=== PATIENT | female | born 1935 | race Caucasian/White ===

== ENCOUNTER 2017-10-09 12:51 | Outpatient (RCR) | payer MEDICARE, OTHER ==
[2017-10-02 08:39] VITALS: BP 137/63
[2017-10-02 08:48] LABS: PLATELET COUNT, AUTOMATED 273 K/uL (150-450)
--- NOTE | 2017-10-02 09:54 | RADIOLOGY IMAGING REPORT ---
FACILITY: [facility] PATIENT NAME: Silva Brown : 1935 MR: [id number] V: [id number] EXAM DATE: ORDERING PHYSICIAN: SANDRINE ZHAO TECHNOLOGIST: Location: [facility] [place] Patient: Silva Brown : 1935 Visit/Account:[id number] Date of Sevice: 10/02/2017 CHEST W CONTRAST Provided history: Lung cancer Additional pertinent history: none TECHNIQUE: Spiral scan was obtained from the lower neck through the lung bases with intravenous cont rast Contrast dose: 75 mL Isovue 370 intravenously. Source images were reformatted in the coronal and sagittal planes. Additional series performed today: none One of the following dose optimization techniques was utilized in the performance of this exam: Autom ated exposure control; adjustment of the mA and/or kV according to the patient's size; or use of an i terative reconstruction technique. Specific details can be referenced in the facility's radiology CT exam operational policy. COMPARISON STUDIES: CT chest 05/18/17 FINDINGS: Lungs / pleura / maximino: Wedge-shaped soft tissue attenuation peripherally left mid lung touching the lateral pleural margin is slightly less dense compared to prior with no progressive component. Additional confluent density in the posterior left lower lung and small associated effusion is very s imilar to the prior exam. There is no centrally obstructing mass. Airways are widely patent. Subpleur al nodularity image 76 is stable. Right lung reveals no acute changes. A dense subpleural nodule right lower lobe image 74 is unchanged . Lower neck: Multiple hypoenhancing masses of the thyroid with left lower pole extension to the medi astinum is unchanged from prior. No lower neck adenopathy. Mediastinum: Stable small left para-aortic lymph node. Scattered small mediastinal lymph nodes else where are also stable. No worsening adenopathy. Heart / pericardium: negative Vessels: Moderately advanced three-vessel coronary artery calcification. Extensive low-attenuation pl aque of the descending thoracic aorta with ulceration. No new mural clot. Lymph nodes: negative Body wall: negative Upper abdomen: Circumscribed mass left adrenal measures 16 x 27 mm, unchanged from prior and older e xaminations. Right adrenal negative. No upper hepatic lesion. Bones: negative IMPRESSION: 1. Airspace disease posterior left lower lobe and small effusion is very similar to prior examination . I would favor posttreatment change or recurring inflammatory/infectious process over neoplastic. 2. Peripheral airspace disease left midlung shows decreasing density from the last exam and likely re lates to prior treatment or a sequela of old embolism. 3. No new or enlarging pulmonary nodules in either lung. 4. Stable left adrenal mass, likely benign. 5. Multinodular goiter with left lobe mediastinal descent. Report Dictated By: Roger Dietz MD at 10/02/2017 9:38 AM Report E-Signed By: Roger Dietz MD at 10/02/2017 9:50 AM WSN:[id number]
[~2017-10-09 12:51] MED LIST: ALPR-429 PO; ALPR-460 PO; AMOX-559 PO; AMOX1TAB9 PO; ASCO-182 PO; ASPI-870 PO; ATE50 PO; ATEN-1 PO; ATOR40TA24 PO; AZIT-18 PO; CALC-515 PO; CARV12.577 PO; CEFU250T11 PO; CHOL200025 PO; CHOL400C10 PO; CLOP75TA43 PO; CYAN500L6 PO; CYCL1DRO6 OP; DEX4 PO; DEXTROSE 5%(*) 100 ML BAG 100 ML IVPB PRN; EST625 PO; EZET1TAB55 PO; FERR-53 PO; FERR325T24 PO; FLUC200T56 PO; FOLI-68 PO; HCTZ25 PO; HYDROCHLOROTHYAZIDE; IBUP-1618 PO; IOPAMIDOL 76% 75 ML INFUS BTL 75 ML ONE; LACT1CAP6 PO; LIDOCAINE/SOD BICARB 8.4% SYR ID PRN; LISI-362 PO; LISI5TAB25 PO; LOR5 PO; METF-410 PO; METF-420 PO; METF750T25 PO; METH5TAB87 PO; METO25TA23 PO; METO50TA19 PO; MULT1TAB64 PO; NIT4 SL; NS(*) 0.9% 100 ML BAG 100 ML IVPB PRN; OMEG300C PO; ONDA4TAB97 PO; ONDA8TAB94 PO; PANT40TA65 PO; RANI-366 PO; ROBC PO; SIMV-49 PO; TRAM-420 PO; TRAM-627 PO; [UNRECOGNIZED DRUG - CODE] PO
[2017-10-09] MEDS ORDERED: UBID50TA3 PO (14:38)
[2017-10-09] MEDS ORDERED: TRAZ-156 PO (14:38)
[2017-10-09] MEDS ORDERED: CHOL200074 PO (14:38)
[2017-10-09] MEDS ORDERED: ALPH50CA4 PO (14:38)
[2017-10-09] MEDS ORDERED: CYAN100T25 PO (14:38)
== END 2017-10-10 14:36 | disposition home or self-care (01) ==
LOC: RAON 12:51
PROVIDERS: ATTEND Radiology Radiation Oncology
DX: C34.90 Malignant neoplasm of unspecified part of unspecified bronchus or lung (principal); J90 Pleural effusion, not elsewhere classified; E27.8 Other specified disorders of adrenal gland; E04.2 Nontoxic multinodular goiter
CPT/HCPCS: 36415; 71260; 85025; G0463; Q9967; 82040; 82247; 82310; 82374; 82435; 82565; 82947; 84075; 84132; 84155; 84295; 84450; 84460; 84520; 99212

== ENCOUNTER 2017-12-25 21:14 | Inpatient (IN) | payer MEDICARE, OTHER ==
[~2017-12-25] VITALS: Ht 167.6 cm; Wt 61.8 kg
[~2017-12-25 21:14] MED LIST changes: +ALPH50CA4 PO; +CHOL200074 PO; +CYAN100T25 PO; -DEXTROSE 5%(*) 100 ML BAG 100 ML IVPB PRN; -IOPAMIDOL 76% 75 ML INFUS BTL 75 ML ONE; -LIDOCAINE/SOD BICARB 8.4% SYR ID PRN; -METF-410 PO; +METF-411 PO; -METF-420 PO; +METF-421 PO; -NS(*) 0.9% 100 ML BAG 100 ML IVPB PRN; +TRAZ50TA34 PO; +UBID50TA3 PO
[2017-12-25] MEDS ORDERED: NIT4 SL (21:31)
[2017-12-25] MEDS ORDERED: NS(*) 0.9% 1000 ML BAG 1,000 ML IV ONE (21:33)
--- NOTE | 2017-12-25 21:33 | ER Report ---
History and Physical Time Seen By MD: 21:28 Hx. of Stated Complaint: PT REPORTS HIGH BP READING AT HOME, FEELING NAUSEOUS HPI/ROS CHIEF COMPLAINT: Dizziness, nausea HISTORY OF PRESENT ILLNESS: 82-year-old female with a history of lung cancer, COPD, she wears 2 L of O2 at night.. Tonight she presents to the ER with dizziness and nausea and shortness of breath. She said symptoms for several days. Tonight she noted her blood pressure was elevated and she came to the ER. Patient notes no leg swelling or calf pain. REVIEW OF SYSTEMS: Respiratory: As above Cardiovascular: No chest pain, no palpitations. Gastrointestinal: No vomiting, no abdominal pain. Musculoskeletal: No back pain. Allergies: Coded Allergies: No Known Allergies (Verified Allergy, Mild, 07/17/16) Home Meds Active Scripts Ferrous Sulfate (FERROUS SULFATE) 325 Mg Tablet, 325 MG PO DAILY for 30 Days, # 30 MG 6 Refills Prov:SRIDEVI WYLIE GREEN HIDE INSPECTOR-BC, ONC 12/27/16 Folic Acid (FOLIC ACID) 1 Mg Tablet, 1 MG PO QDAY, #30 TAB 5 Refills Prov:SRIDEVI WYLIE GREEN HIDE INSPECTOR-BC, ONC 08/07/16 Aspirin (Children's Aspirin) 81 Mg Chew, 81 MG PO QDAY, #30 TAB.CHEW Prov:REILLY WEAVER DO 09/11/14 Reported Medications Nitroglycerin (NITROSTAT) 0.4 Mg Subl, 0.4 MG SL Q5MIN 12/25/17 Cholecalciferol (Vitamin D3) (VITAMIN D-3) 2,000 Unit Capsule, 2000 UNIT PO DAILY, CAPSULE 10/09/17 Ubidecarenone (COQ10) 50 Mg Tab.chew, 120 MG PO DAILY, TAB.CHEW 10/09/17 Cyanocobalamin (Vitamin B-12) (VITAMIN B-12) 100 Mcg Tablet, 200 MCG PO DAILY 10/09/17 Alpha Lipoic Acid (ALPHA LIPOIC ACID) 50 Mg Capsule, 50 MG PO DAILY, CAPSULE 10/09/17 Trazodone Hcl (TRAZODONE HCL) 50 Mg Tablet, 25 MG PO QHS 10/09/17 Metformin Hcl (METFORMIN HCL) 1,000 Mg Tablet, 1 TAB PO BID, TAB 05/23/17 Multivitamin (MULTI VITAMIN DAILY) 1 Each Tablet, 1 EACH PO DAILY 11/16/16 Ascorbic Acid (VITAMIN C) 500 Mg Tablet, 500 MG PO DAILY, TAB 11/16/16 Methimazole (METHIMAZOLE) 5 Mg Tablet, 5 MG PO DAILY 09/04/16 Metoprolol Succinate (METOPROLOL SUCCINATE) 50 Mg Tab.er.24h, 100 MEQ PO QDAY, TAB 08/17/16 Lisinopril (LISINOPRIL) 5 Mg Tablet, 10 MG PO QDAY, TAB 08/17/16 Atorvastatin Calcium (LIPITOR) 40 Mg Tablet, 1 TAB PO HS, TAB 02/12/15 Discontinued Scripts Ranitidine Hcl (ZANTAC) 150 Mg Tablet, 150 MG PO DAILY, #90 TAB 4 Refills Prov:SRIDEVI WYLIE Ambrosio GREEN HIDE INSPECTOR-BC, ONC 06/14/17 Past Medical/Surgical History PAST MEDICAL HISTORY 1. Anemia. 2. Type 2 diabetes mellitus. 3. Coronary artery disease. 4. History of pneumonia. 5. Hypercholesterolemia. 6. Adenocarcinoma left lung PAST SURGICAL HISTORY Hysterectomy in 1990. SOCIAL HISTORY The patient is . She has two daughters and one son. She is retired from office work. Denies any abuse of alcohol or illicit drugs. She quit smoking September 2014 when she was diagnosed with heart attack. Prior to that she smoked one pack a day for sixty years. FAMILY HISTORY Noncontributory. CURRENT MEDICATIONS 1. Methimazole 5 mg daily. 2. Metoprolol 25 mg daily. 3. Vitamin D3, 2000 units daily. 4. Probiotic one capsule daily. 5. Vitamin B12, 500 mcg daily. 6. Metformin 250 mg twice daily. 7. Fish oil 300 mg daily. 8. Multivitamin half tablet daily. 9. Alprazolam 0.5 mg as needed. 10. Lipitor 40 mg daily. 11. Lisinopril 10 mg daily. 12. Plavix 75 mg daily. 13. Aspirin 81 mg daily. ALLERGIES No known drug allergies. Reviewed Nurses Notes: Yes Old Medical Records Reviewed: Yes Hx Smoking: Yes Smoking Status: Former Smoker Exposure to Second Hand Smoke?: No Hx Substance Use Disorder: No Hx Alcohol Use: No Constitutional Vital Sign - Last 24 Hours 12/25/17 12/25/17 12/25/17 12/25/17 21:14 21:18 21:19 21:29 Temp 97.9 Pulse ??? 90 84 Resp 16 26 B/P (MAP) 182/118 182/118 (139) Pulse Ox 91 91 O2 Delivery Room Air 12/25/17 12/25/17 12/25/17 12/25/17 21:30 21:44 21:59 22:00 Pulse 73 74 Resp 29 10 B/P (MAP) 170/96 (120) 120/77 (91) Pulse Ox 91 93 12/25/17 12/25/17 12/25/17 12/25/17 22:14 22:15 22:20 22:30 Pulse 79 79 Resp 13 10 B/P (MAP) 117/86 (96) 152/83 (106) 144/71 (95) Pulse Ox 93 93 12/25/17 12/25/17 12/25/17 12/25/17 22:35 22:45 22:50 23:00 Pulse ? B/P (MAP) ???/??? (3505) ???/??? (1665) 12/25/17 12/25/17 12/25/17 12/25/17 23:05 23:20 23:22 23:30 Pulse ? B/P (MAP) 127/88 (101) ???/??? (1665) 12/25/17 12/25/17 12/25/17 12/25/17 23:35 23:45 23:50 23:55 Pulse 73 71 70 B/P (MAP) ???/??? (9155) Pulse Ox 90 89 89 12/26/17 12/26/17 12/26/17 12/26/17 00:00 00:10 00:19 00:25 Pulse 73 82 B/P (MAP) ???/??? (1665) 138/87 (104) Pulse Ox 91 91 12/26/17 12/26/17 12/26/17 12/26/17 00:30 00:40 00:55 01:00 Pulse 75 ??? B/P (MAP) 150/89 (109) ???/??? (1665) Pulse Ox 91 1818 12/26/17 12/26/17 01:10 01:25 01:30 Pulse 74 72 B/P (MAP) ???/??? (1665) Pulse Ox 94 95 Physical Exam Vital signs stable, afebrile, pulse ox normal on room air, patient's blood pressures mildly elevated General Appearance: The patient is alert, has no immediate need for airway protection and no current signs of toxicity. Skin warm, dry, pink, HEENT: Pupils equal and round no injection. Oropharynx without redness or exudate, mucous. Membranes are moist Respiratory: Chest is non tender, lungs are clear to auscultation. No wheezing or rails Cardiac: regular rate and rhythm Gastrointestinal: Abdomen is soft and non tender, no masses, bowel sounds normal. Musculoskeletal: Neck: Neck is supple and non tender. No lymphadenopathy, no JVD Extremities have full range of motion and are non tender. No edema, no calf tenderness Skin: No rashes or lesions. DIFFERENTIAL DIAGNOSIS: After history and physical exam differential diagnosis was considered for shortness of breath including but not limited to pulmonary infectious process, COPD, asthma, pulmonary embolus and congestive heart failure. Additionally,dizziness including but not limited to peripheral and central causes of vertigo, orthostatic causes including dehydration, and blood loss. Medical Decision Making Data Points Result Diagram: 12/25/17212912/25/172129 Laboratory Hematology Test 12/25/17 21:30 12/25/17 21:50 Red Blood Count 4.93 M/uL (4.17-5.56) Mean Corpuscular Volume 91.0 fL (80.0-96.0) Mean Corpuscular Hemoglobin 31.4 pg (26.0-33.0) Mean Corpuscular Hemoglobin Concent 34.5 g/dL (32.0-36.0) Red Cell Distribution Width 13.2 % (11.5-14.5) Mean Platelet Volume 7.4 fL (7.2-11.1) Neutrophils (%) (Auto) 66.4 % (39.4-72.5) Lymphocytes (%) (Auto) 16.5 % (17.6-49.6) Monocytes (%) (Auto) 14.1 % (4.1-12.4) Eosinophils (%) (Auto) 2.3 % (0.4-6.7) Basophils (%) (Auto) 0.7 % (0.3-1.4) Nucleated RBC Relative Count (auto) 0.1 /100WBC Neutrophils # (Auto) 4.7 K/uL (2.0-7.4) Lymphocytes # (Auto) 1.2 K/uL (1.3-3.6) Monocytes # (Auto) 1.0 K/uL (0.3-1.0) Eosinophils # (Auto) 0.2 K/uL (0.0-0.5) Basophils # (Auto) 0.1 K/uL (0.0-0.1) Nucleated RBC Absolute Count (auto) 0.01 K/uL D-Dimer Quantitative (PE/DVT) 1.31 ug/ml (0-0.50) Sodium Level 138 mmol/L (137-145) Potassium Level 3.9 mmol/L (3.5-5.0) Chloride Level 100 mmol/L (98-107) Carbon Dioxide Level 25 mmol/L (22-31) Blood Urea Nitrogen 11 mg/dl (7-18) Creatinine 0.70 mg/dl (0.52-1.04) Glomerular Filtration Rate Calc > 60.0 Random Glucose 157 mg/dl (75-110) Calcium Level 9.4 mg/dl (8.4-10.2) Total Bilirubin 0.4 mg/dl (0.2-1.3) Aspartate Amino Transf (AST/SGOT) 26 U/L (0-35) Alanine Aminotransferase (ALT/SGPT) 27 U/L (0-56) Alkaline Phosphatase 104 U/L (0-126) Troponin I < 0.012 ng/ml B-Type Natriuretic Peptide 194 pg/ml (0-100) Total Protein 7.5 g/dl (6.3-8.2) Albumin 4.5 g/dl (3.5-5.0) Urine Color Colorless Urine Clarity Clear Urine pH 7.0 pH (4.8-9.5) Urine Specific [place] 1.005 Urine Protein Negative mg/dL (NEGATIVE) Urine Glucose (UA) 50 mg/dL (NEGATIVE) Urine Ketones Negative mg/dL (NEGATIVE) Urine Blood Negative (NEGATIVE) Urine Nitrite Negative (NEGATIVE) Urine Bilirubin Negative (NEGATIVE) Urine Urobilinogen Negative mg/dL (0.2-1.9) Urine Leukocyte Esterase Negative (NEGATIVE) Urine RBC <1 /HPF (0-2/HPF) Urine WBC 1 /HPF (0-5/HPF) Urine Squamous Epithelial Cells None /LPF (NONE-FEW) Urine Bacteria Negative /HPF (NONE-FEW) Urine Mucus None /HPF (NONE-FEW) Chemistry Test 12/25/17 21:30 12/25/17 21:50 White Blood Count 7.1 k/uL (4.5-11.0) Red Blood Count 4.93 M/uL (4.17-5.56) Hemoglobin 15.5 g/dL (12.0-16.0) Hematocrit 44.8 % (34.0-47.0) Mean Corpuscular Volume 91.0 fL (80.0-96.0) Mean Corpuscular Hemoglobin 31.4 pg (26.0-33.0) Mean Corpuscular Hemoglobin Concent 34.5 g/dL (32.0-36.0) Red Cell Distribution Width 13.2 % (11.5-14.5) Platelet Count 284 K/uL (150-450) Mean Platelet Volume 7.4 fL (7.2-11.1) Neutrophils (%) (Auto) 66.4 % (39.4-72.5) Lymphocytes (%) (Auto) 16.5 % (17.6-49.6) Monocytes (%) (Auto) 14.1 % (4.1-12.4) Eosinophils (%) (Auto) 2.3 % (0.4-6.7) Basophils (%) (Auto) 0.7 % (0.3-1.4) Nucleated RBC Relative Count (auto) 0.1 /100WBC Neutrophils # (Auto) 4.7 K/uL (2.0-7.4) Lymphocytes # (Auto) 1.2 K/uL (1.3-3.6) Monocytes # (Auto) 1.0 K/uL (0.3-1.0) Eosinophils # (Auto) 0.2 K/uL (0.0-0.5) Basophils # (Auto) 0.1 K/uL (0.0-0.1) Nucleated RBC Absolute Count (auto) 0.01 K/uL D-Dimer Quantitative (PE/DVT) 1.31 ug/ml (0-0.50) Glomerular Filtration Rate Calc > 60.0 Calcium Level 9.4 mg/dl (8.4-10.2) Total Bilirubin 0.4 mg/dl (0.2-1.3) Aspartate Amino Transf (AST/SGOT) 26 U/L (0-35) Alanine Aminotransferase (ALT/SGPT) 27 U/L (0-56) Alkaline Phosphatase 104 U/L (0-126) Troponin I < 0.012 ng/ml B-Type Natriuretic Peptide 194 pg/ml (0-100) Total Protein 7.5 g/dl (6.3-8.2) Albumin 4.5 g/dl (3.5-5.0) Urine Color Colorless Urine Clarity Clear Urine pH 7.0 pH (4.8-9.5) Urine Specific [place] 1.005 Urine Protein Negative mg/dL (NEGATIVE) Urine Glucose (UA) 50 mg/dL (NEGATIVE) Urine Ketones Negative mg/dL (NEGATIVE) Urine Blood Negative (NEGATIVE) Urine Nitrite Negative (NEGATIVE) Urine Bilirubin Negative (NEGATIVE) Urine Urobilinogen Negative mg/dL (0.2-1.9) Urine Leukocyte Esterase Negative (NEGATIVE) Urine RBC <1 /HPF (0-2/HPF) Urine WBC 1 /HPF (0-5/HPF) Urine Squamous Epithelial Cells None /LPF (NONE-FEW) Urine Bacteria Negative /HPF (NONE-FEW) Urine Mucus None /HPF (NONE-FEW) Coagulation Test 12/25/17 21:30 D-Dimer Quantitative (PE/DVT) 1.31 ug/ml Urinalysis Test 12/25/17 21:50 Urine Color Colorless Urine Clarity Clear Urine pH 7.0 pH (4.8-9.5) Urine Specific [place] 1.005 Urine Protein Negative mg/dL (NEGATIVE) Urine Glucose (UA) 50 mg/dL (NEGATIVE) Urine Ketones Negative mg/dL (NEGATIVE) Urine Blood Negative (NEGATIVE) Urine Nitrite Negative (NEGATIVE) Urine Bilirubin Negative (NEGATIVE) Urine Urobilinogen Negative mg/dL (0.2-1.9) Urine Leukocyte Esterase Negative (NEGATIVE) Urine RBC <1 /HPF (0-2/HPF) Urine WBC 1 /HPF (0-5/HPF) Urine Squamous Epithelial Cells None /LPF (NONE-FEW) Urine Bacteria Negative /HPF (NONE-FEW) Urine Mucus None /HPF (NONE-FEW) EKG/Imaging EKG Interpretation 12 lead EK Rhythm: normal sinus rhythm with first-degree AV block [place]: normal QRS: normal ST segments: normal, no evidence of ischemia or dysrhythmia Imaging Results: CT scan of the head was obtained. The results of the study are no acute findings. The study was read by the radiologist. I viewed the images myself on the PACS system. Results: CT scan of the CTA upon her angiogram was obtained. The results of the study are Preliminary report per radiology shows multiple pulmonary embolisms The study was read by the radiologist. I viewed the images myself on the PACS system. ED Course/Re-evaluation Clinical Indication for ER IV: IV Access ED Course Patient was admitted to an examination room. H&P was done. The differential diagnoses was considered. On clinical examination. Patient complaining of dizziness and shortness of breath for several days. She noted her blood pressure was elevated tonight. Presents to the emergency department. She has a known history of lung cancer, status post chemotherapy and radiation. She denies any fever, URI cough or sore throat. Diagnostic evaluation shows an elevated d-dimer. Her troponin and EKG are unremarkable. Patient had a head CT performed to rule out acute ischemic stroke as etiology of her dizziness. Her d-dimer was elevated and she was sent for CTA pulmonary angiogram which returned positive for multiple subsegmental pulmonary embolism. 12/26/2017 12:19:54 am case discussed with Dr. Andrea Gipson hospitalist on- call. Decision to Disposition Date: Dec 25, 2017 Decision to Disposition Time: 23:12 Depart Departure Latest Vital Signs Vital Signs Date Time Temp Pulse Resp B/P (MAP) Pulse Ox O2 Delivery O2 Flow Rate FiO2 12/26/17 01:30 ???/??? (1665) 12/26/17 01:25 72 95 12/25/17 22:20 10 12/25/17 21:18 97.9 Room Air Impression: Primary Impression: Pulmonary embolism Additional Impressions: Dizzinesses Dyspnea Hypertension Adenocarcinoma of lung Condition: Improved Disposition: Admitted from ER Referrals: REILLY REVELES MD (PCP) Additional Instructions: Follow-up with primary care if unimproved in 3-5 days Problem Qualifiers Primary Impression: Pulmonary embolism Pulmonary embolism type: other Chronicity: acute Acute cor pulmonale presence: without acute cor pulmonale Qualified Codes: I26.99 - Other pulmonary embolism without acute cor pulmonale Additional Impressions: Dyspnea Dyspnea type: unspecified Qualified Codes: R06.00 - Dyspnea, unspecified Hypertension Hypertension type: essential hypertension Qualified Codes: I10 - Essential ( primary) hypertension Adenocarcinoma of lung Laterality: left Qualified Codes: C34.92 - Malignant neoplasm of unspecified part of left bronchus or lung BYRON MCCARTY DO Dec 25, 2017 21:33
[2017-12-25] MEDS ORDERED: ONDANSETRON 4 MG/2 ML VIAL IVP ONE (21:35)
[2017-12-25 21:44] LABS: PLATELET COUNT, AUTOMATED 284 K/uL (150-450)
--- NOTE | 2017-12-25 21:52 | EKG ---
FACILITY: [facility] PATIENT NAME: JENNIFER ROSARIO : [id number] MR: [id number] V: [id number] EXAM DATE: ORDERING PHYSICIAN: BYRON MCCARTY TECHNOLOGIST: GEOVANNY Test Reason : CARDIAC Blood Pressure : / mmHG Vent. Rate : 078 BPM Atrial Rate : 078 BPM P-R Int : 238 ms QRS Dur : 078 ms QT Int : 398 ms P-R-T Axes : 089 030 038 degrees QTc Int : 453 ms Sinus rhythm with 1st degree AV block Septal infarct , age undetermined Abnormal ECG When compared with ECG of 01-NOV-2016 17:03, premature ventricular complexes are no longer present Septal infarct is now present T wave inversion now evident in Anterior leads Confirmed by LAUREN ALDRICH ([id number]) on 12/25/2017 10:04:58 PM Referred By: Confirmed By:LAUREN ALDRICH
[2017-12-25] MEDS ORDERED: IOPAMIDOL 76% 75 ML INFUS BTL 75 ML ONE (22:33)
[2017-12-25] MEDS ORDERED: NS 0.9% 25 ML BAG 50 ML ONE (22:33)
--- NOTE | 2017-12-25 22:38 | RADIOLOGY IMAGING REPORT ---
FACILITY: [facility] - [place] PATIENT NAME: Silva Brown : 1935 MR: [id number] V: [id number] EXAM DATE: ORDERING PHYSICIAN: BYRON MCCARTY TECHNOLOGIST: Location: [facility] - [place] Patient: Silva Brown : 1935 Visit/Account:[id number] Date of Sevice: 12/25/2017 CT Head without contrast Indication: Dizziness. Comparison: Brain MRI 07/24/2016. Technique: Axial CT images were obtained through the brain from the skull base to the vertex without administration of IV contrast. One of the following dose optimization techniques was utilized in th e performance of this exam: Automated exposure control; adjustment of the mA and/or kV according to t he patient's size; or use of an iterative reconstruction technique. Specific details can be referen pipo in the facility's radiology CT exam operational policy. Findings: No evidence of mass, mass effect, or midline shift. No acute intracranial hemorrhage or acute territorial infarction. Small amount of white matter hypoattenuation likely related to small vessel ischemic disease. Skull is grossly normal. Bilateral lens surgeries. The visualized paranasal sinuses and mastoid air spaces are clear. IMPRESSION: No acute intracranial abnormality. Report Dictated By: Chirs Castro MD at 12/25/2017 10:28 PM Report E-Signed By: Chris Castro MD at 12/25/2017 10:33 PM WSN:[id number]
[2017-12-26] MEDS ORDERED: ACETAMINOPHEN 325 MG TAB PO PRN (01:00)
[2017-12-26] MEDS ORDERED: INSULIN HUM LISPRO 100 UN/ML 3 ML VIAL SUBQ PRN (01:05)
[2017-12-26] MEDS ORDERED: traZODone HCL 50 MG TAB PO PRN (01:05)
--- NOTE | 2017-12-26 01:29 | History & Physical ---
History of Present Illness History of Present Illness 82yo female with a h/o left lung adenocarcinoma who came to the ER for vertigo, nausea and elevated BP. For the last couple of weeks, she has noted LOPEZ. It has persisted, but is mild. She has had intermittent LE edema for about the same amount of time L>R. Yesterday, she noted pain on the left upper back, that seemed muscular. That was mild and resolved on its own. This morning, she was feeling well and did well all day. This evening she stood up from her chair and felt like the room was spinning. She became nauseated and sat down. The symptoms resolved in 5 minutes and have not returned. She denies SOB/CP/ orthopnea. She no longer smokes and is not on any estrogen products. History Problems: (1) Hyperthyroidism Status: Chronic (2) Adenocarcinoma of lung Status: Chronic (3) Hiatal hernia Status: Chronic (4) Hypertension Status: Chronic (5) DMII (diabetes mellitus, type 2) Status: Chronic (6) CAD (coronary artery disease) Status: Chronic Home Meds Active Scripts Ferrous Sulfate (FERROUS SULFATE) 325 Mg Tablet, 325 MG PO DAILY for 30 Days, # 30 MG 6 Refills Prov:SRIDEVI WYLIE TAIL TRIMMER-BC, ONC 12/27/16 Folic Acid (FOLIC ACID) 1 Mg Tablet, 1 MG PO QDAY, #30 TAB 5 Refills Prov:SRIDEVI WYLIE TAIL TRIMMER-BC, ONC 08/07/16 Aspirin (Children's Aspirin) 81 Mg Chew, 81 MG PO QDAY, #30 TAB.CHEW Prov:REILLY WEAVER DO 09/11/14 Reported Medications Nitroglycerin (NITROSTAT) 0.4 Mg Subl, 0.4 MG SL Q5MIN 12/25/17 Cholecalciferol (Vitamin D3) (VITAMIN D-3) 2,000 Unit Capsule, 2000 UNIT PO DAILY, CAPSULE 10/09/17 Ubidecarenone (COQ10) 50 Mg Tab.chew, 120 MG PO DAILY, TAB.CHEW 10/09/17 Cyanocobalamin (Vitamin B-12) (VITAMIN B-12) 100 Mcg Tablet, 200 MCG PO DAILY 10/09/17 Alpha Lipoic Acid (ALPHA LIPOIC ACID) 50 Mg Capsule, 50 MG PO DAILY, CAPSULE 10/09/17 Trazodone Hcl (TRAZODONE HCL) 50 Mg Tablet, 25 MG PO QHS 10/09/17 Metformin Hcl (METFORMIN HCL) 1,000 Mg Tablet, 1 TAB PO BID, TAB 05/23/17 Multivitamin (MULTI VITAMIN DAILY) 1 Each Tablet, 1 EACH PO DAILY 11/16/16 Ascorbic Acid (VITAMIN C) 500 Mg Tablet, 500 MG PO DAILY, TAB 11/16/16 Methimazole (METHIMAZOLE) 5 Mg Tablet, 5 MG PO DAILY 09/04/16 Metoprolol Succinate (METOPROLOL SUCCINATE) 50 Mg Tab.er.24h, 100 MEQ PO QDAY, TAB 08/17/16 Lisinopril (LISINOPRIL) 5 Mg Tablet, 10 MG PO QDAY, TAB 08/17/16 Atorvastatin Calcium (LIPITOR) 40 Mg Tablet, 1 TAB PO HS, TAB 02/12/15 Discontinued Scripts Ranitidine Hcl (ZANTAC) 150 Mg Tablet, 150 MG PO DAILY, #90 TAB 4 Refills Prov:SRIDEVI WYLIE TAIL TRIMMER-BC, ONC 06/14/17 Allergies: Coded Allergies: No Known Allergies (Verified Allergy, Mild, 07/17/16) Patient History: FH: VA (myocardial infarction) FATHER, , Age:64 MOTHER, , Age:72 FH: diabetes mellitus MOTHER, , Age:72 Siblings x 1 Other Social/Family Hx Quit smoking in 2014. Retired. Lives with her . Hx Smoking: Yes Smoking Status: Former Smoker Exposure to Second Hand Smoke?: No Hx Alcohol Use: No Hx Substance Use Disorder: No Social Drug Use: Never Review of Systems All Systems Reviewed/Normal: Yes, Except as Noted Exam Vital Signs Vital Signs Date Time Temp Pulse Resp B/P (MAP) Pulse Ox O2 Delivery O2 Flow Rate FiO2 12/25/17 23:50 71 89 12/25/17 23:45 ???/??? (6595) 12/25/17 22:20 10 12/25/17 21:18 97.9 Room Air General Appearance: Alert, Awake, No Acute Distress Neuro: No Gross deficits Eyes: PERRLA ENT: Moist Mucous Membranes Cardiovascular: Regular Rate and Rhythm, No JVD Respiratory: Clear to Auscultation GI: Abd Soft and Non-Tender Extremities: No Edema Integumentary: No Jaundice, No Cyanosis Medical Decision Making Data Points Result Diagram: 12/25/17212912/25/172129 Item Value Date Time B-Type Natriuretic Peptide 194 pg/ml H 12/25/172129 Troponin I < 0.012 ng/ml 12/25/172129 Total Bilirubin 0.4 mg/dl 12/25/172129 Aspartate Amino Transf (AST/SGOT) 26 U/L 12/25/172129 Alanine Aminotransferase (ALT/SGPT) 27 U/L 12/25/172129 Alkaline Phosphatase 104 U/L 12/25/172129 Random Glucose 157 mg/dl H 12/25/172129 Neutrophils (%) (Auto) 66.4 % 12/25/172129 Lymphocytes (%) (Auto) 16.5 % L 12/25/172129 Monocytes (%) (Auto) 14.1 % H 12/25/172129 Eosinophils (%) (Auto) 2.3 % 12/25/172129 Basophils (%) (Auto) 0.7 % 12/25/172129 D-Dimer Quantitative (PE/DVT) 1.31 ug/ml H 12/25/172129 Urine RBC <1 /HPF 12/25/172149 Urine WBC 1 /HPF 12/25/172149 Urine Glucose (UA) 50 mg/dL H 12/25/172149 Urine Squamous Epithelial Cells None /LPF 12/25/172149 EKG / Imaging EKG Interpretation Vent. Rate : 078 BPM Atrial Rate : 078 BPM P-R Int : 238 ms QRS Dur : 078 ms QT Int : 398 ms P-R-T Axes : 089 030 038 degrees QTc Int : 453 ms Sinus rhythm with 1st degree AV block Septal infarct , age undetermined Abnormal ECG When compared with ECG of 01-NOV-2016 17:03, premature ventricular complexes are no longer present Septal infarct is now present T wave inversion now evident in Anterior leads Confirmed by LAUREN ALDRICH ([id number]) on 12/25/2017 10:04:58 PM Imaging Chest CTA - reported as multiple subsegmental PE. Awaiting official report Head CT - No acute intracranial abnormality. Assessment and Plan Problems: (1) Multiple pulmonary emboli Status: Acute Assessment & Plan: She presented with a couple weeks of LOPEZ and intermittent LE edema L>R. She had some left sided back pain yesterday. Today, she had a 5 minute vertigo event with standing and nausea, that hasn't returned. CTA of the chest was positive for multiple subsegmental PE. It is unclear of the acuity of the PE, but will treat with Lovenox. Because of the lung cancer h/o, it might be best to get Dr. Cedeño's opinion about best treatment options. Her BP/P are stable and she is on her baseline nighttime O2 requirement. Will defer any hypercoagulable workup to Dr. Cedeño. (2) Adenocarcinoma of lung Status: Chronic Assessment & Plan: Stage IIIA of the left lower lobe. She was treated with chemoradioation. She received radiation ending on 10/05/16 and carboplatin/ Alimta ending on 10/19/16. Now being followed. (3) Hyperthyroidism Status: Chronic Assessment & Plan: Continue chronic methimazole. (4) T2DM (type 2 diabetes mellitus) Status: Chronic Assessment & Plan: She is chronically on metformin, which will be held. Glucose checks AC and HS with SSI level 2 to cover. (5) CAD (coronary artery disease) Status: Chronic Assessment & Plan: [place] with 2 stents placed in September of 2014. Now on ASA/ Metoprolol/Atorvastatin. ASA to be held for now and continue Metoprolol/ Atorvastatin. (6) Hypertension Status: Chronic Assessment & Plan: Continue chronic metoprolol and lisinopril with parameters. Copies to: JHOAN CEDEÑO MD; REILLY REVELES MD Venous Thromboembolism Antithrombotics Is Pt On Any Antithrombotics?: Yes Exam Sepsis Risk: No Definite Risk Problem Qualifiers (1) Adenocarcinoma of lung: Laterality: left Qualified Codes: C34.92 - Malignant neoplasm of unspecified part of left bronchus or lung (2) Hypertension: Hypertension type: essential hypertension Qualified Codes: I10 - Essential ( primary) hypertension LAUREN ALDRICH MD Dec 26, 2017 01:29
[2017-12-26 01:59] VITALS: BP 163/92
[2017-12-26] MEDS ORDERED: ENOXAPARIN 100 MG/ML SYR SC SCH (02:00)
[2017-12-26] MEDS ORDERED: CYAN500T54 PO (03:05)
[2017-12-26] MEDS ORDERED: UBID200C21 PO (03:05)
[2017-12-26] MEDS ORDERED: TRAZ100T31 PO (03:05)
[2017-12-26] MEDS ORDERED: MAGN250T34 PO (03:05)
[2017-12-26] MEDS ORDERED: ALPH200T3 PO (03:05)
[2017-12-26] MEDS ORDERED: BIOT300T6 PO (03:05)
[2017-12-26] MEDS ORDERED: CHOL500025 PO (03:05)
--- NOTE | 2017-12-26 06:09 | RADIOLOGY IMAGING REPORT ---
FACILITY: [facility] PATIENT NAME: Silva Brown : 1935 MR: [id number] V: [id number] EXAM DATE: ORDERING PHYSICIAN: BYRON MCCARTY TECHNOLOGIST: Location: [facility] Patient: Silva Brown : 1935 Visit/Account:[id number] Date of Sevice: 12/25/2017 CT PE DATE: 12/25/2017 11:18 PM INDICATION: Elevated d-dimer. History of lung cancer. COMPARISON: Chest CT 10/02/2017. TECHNIQUE: Axial CT angiogram was obtained through the chest with intravenous contrast. Sagittal an d coronal MPR and MIP coronal reformations were also generated. 75 mL isovue 370. One of the follow ing dose optimization techniques was utilized in the performance of this exam: Automated exposure con trol; adjustment of the mA and/or kV according to the patient's size; or use of an iterative reconst ruction technique. Specific details can be referenced in the facility's radiology CT exam operationa l policy. FINDINGS: Thyroid / Thoracic Inlet: Enlarged and heterogeneously attenuating thyroid likely representing multin odular goiter, unchanged. No adenopathy. Pulmonary Arteries: There are multiple small pulmonary emboli involving segmental and subsegmental p ulmonary arteries of the right lower and middle lobes. Heart and Aorta: Normal-size heart with no pericardial effusion. Prominent coronary artery calcific ations. RV/LV ratio is less than 1. Nonaneurysmal thoracic aorta. Mediastinum and Porsche: No lymphadenopathy. Lungs and Pleura: No pleural effusion or pneumothorax. Consolidation with volume loss in the left l ower lobe is unchanged. Scarring in the periphery of the lingula is unchanged. Multifocal pulmonary nodules are similar in appearance to prior. Nodularity along the pleura medially at the left upper lobe is not significantly changed. No definite new suspicious lesion. Breast and Axilla: No axillary lymphadenopathy. Probable right lumpectomy. Upper Abdomen: No visualized acute abnormality. Left adrenal adenoma. Small hiatal hernia. Bones and Soft Tissues: No suspicious osseous or soft tissue abnormality. IMPRESSION: 1. Multiple small pulmonary emboli involving segmental and subsegmental arteries of the right middle and lower lobes. No evidence of right heart strain. 2. Grossly unchanged appearance of the lungs with left basilar consolidation and volume loss that beatriz mclean be treatment related. Multiple bilateral pulmonary nodules are also similar to prior. 3. Additional nonacute findings as described. Dr. Castro discussed this case with BYRON MCCARTY on 12/25/2017 11:35 PM. Report Dictated By: Chris Castro MD at 12/25/2017 11:17 PM Report E-Signed By: Chris Castro MD at 12/25/2017 11:35 PM WSN:[id number]
[2017-12-26 07:54] VITALS: BP 142/84
[2017-12-26] MEDS ORDERED: METOPROLOL SUCC XL 50 MG TABCR 50 MG TAB.ER.24H PO SCH (09:00)
[2017-12-26] MEDS ORDERED: METHIMAZOLE 10 MG TAB PO SCH (09:00)
[2017-12-26] MEDS ORDERED: LISINOPRIL 5 MG TAB PO SCH (09:00)
[2017-12-26 11:09] VITALS: BP 149/84
[2017-12-26] MEDS ORDERED: APIX5TAB PO (11:57)
--- NOTE | 2017-12-26 12:09 | Hospitalist Depart ---
Discharge Summary Reason for Hosp/Final Diag: (1) Multiple pulmonary emboli Status: Acute Hospital Course & Plan: She presented with a couple weeks of LOPEZ and intermittent LE edema L>R. She had some left sided back pain and 1 minute vertigo event with standing and nausea, prior to admission. CTA of the chest was positive for multiple subsegmental PE. BP and vital signs were stable throughout stay, discussed plan with Dr Chakraborty and patient started on Eliquis. 28 day script given will need follow up refills with PCP or Heme/Onc. (2) Adenocarcinoma of lung Status: Chronic Hospital Course & Plan: Stage IIIA of the left lower lobe. She received radiation ending on 10/05/16 and carboplatin/Alimta ending on 10/19/16. Now being followed, follow up with Heme/Onc scheduled for 12.27.2017. (3) Hyperthyroidism Status: Chronic Hospital Course & Plan: Continue chronic methimazole. (4) T2DM (type 2 diabetes mellitus) Status: Chronic Hospital Course & Plan: SSI used while in hospital, resume metformin on dc. (5) CAD (coronary artery disease) Status: Chronic Hospital Course & Plan: [place] with 2 stents placed in September of 2014. Continue home ASA/Metoprolol/Atorvastatin. (6) Hypertension Status: Chronic Hospital Course & Plan: Continue metoprolol and lisinopril. Departure Weight (Pounds): 136 Weight (Ounces): 4.0 Result Diagram: 12/25/17212912/25/172129 Condition: Improved Discharge: Home, Self Care Discharge Instructions Home Meds Active Scripts Apixaban (ELIQUIS) 5 Mg Tablet, 5 MG PO BID, #60 TAB Take 2 tablets twice a day for 7 days, then take one tablet twice daily. Prov:ASHLEY GREEN DO 12/26/17 Ferrous Sulfate (FERROUS SULFATE) 325 Mg Tablet, 325 MG PO DAILY for 30 Days, # 30 MG 6 Refills Prov:SRIDEVI WYLIE BAND SAWYER-BC, ONC 12/27/16 Folic Acid (FOLIC ACID) 1 Mg Tablet, 1 MG PO QDAY, #30 TAB 5 Refills Prov:SRIDEVI WYLIE BAND SAWYER-BC, ONC 08/07/16 Aspirin (Children's Aspirin) 81 Mg Chew, 81 MG PO QDAY, #30 TAB.CHEW Prov:REILLY WEAVER DO 09/11/14 Reported Medications Biotin (BIOTIN) 300 Mcg Tablet, 200 MCG PO DAILY 12/26/17 Magnesium Oxide (MAGNESIUM) 250 Mg Tablet, 250 MG PO DAILY 12/26/17 Cholecalciferol (Vitamin D3) (VITAMIN D3) 5,000 Unit Tablet, 5000 UNIT PO DAILY 12/26/17 Ubidecarenone (CO Q-10) 200 Mg Capsule, 200 MG PO DAILY, CAPSULE 12/26/17 Cyanocobalamin (Vitamin B-12) (B-12) 500 Mcg Tablet, 500 MCG PO DAILY 12/26/17 Alpha Lipoic Acid (ALPHA LIPOIC ACID) 200 Mg Tablet, 200 MG PO DAILY 12/26/17 Trazodone Hcl (TRAZODONE HCL) 100 Mg Tablet, 100 MG PO QHS, TAB 12/26/17 Nitroglycerin (NITROSTAT) 0.4 Mg Subl, 0.4 MG SL Q5MIN 12/25/17 Metformin Hcl (METFORMIN HCL) 1,000 Mg Tablet, 1 TAB PO BID, TAB 05/23/17 Multivitamin (MULTI VITAMIN DAILY) 1 Each Tablet, 1 EACH PO DAILY 11/16/16 Ascorbic Acid (VITAMIN C) 500 Mg Tablet, 500 MG PO DAILY, TAB 11/16/16 Methimazole (METHIMAZOLE) 5 Mg Tablet, 5 MG PO DAILY 09/04/16 Metoprolol Succinate (METOPROLOL SUCCINATE) 50 Mg Tab.er.24h, 100 MEQ PO QDAY, TAB 08/17/16 Lisinopril (LISINOPRIL) 5 Mg Tablet, 10 MG PO QDAY, TAB 08/17/16 Atorvastatin Calcium (LIPITOR) 40 Mg Tablet, 1 TAB PO HS, TAB 02/12/15 Discontinued Reported Medications Cholecalciferol (Vitamin D3) (VITAMIN D-3) 2,000 Unit Capsule, 2000 UNIT PO DAILY, CAPSULE 10/09/17 Ubidecarenone (COQ10) 50 Mg Tab.chew, 120 MG PO DAILY, TAB.CHEW 10/09/17 Cyanocobalamin (Vitamin B-12) (VITAMIN B-12) 100 Mcg Tablet, 200 MCG PO DAILY 10/09/17 Alpha Lipoic Acid (ALPHA LIPOIC ACID) 50 Mg Capsule, 50 MG PO DAILY, CAPSULE 10/09/17 Trazodone Hcl (TRAZODONE HCL) 50 Mg Tablet, 25 MG PO QHS 10/09/17 Discontinued Scripts Ranitidine Hcl (ZANTAC) 150 Mg Tablet, 150 MG PO DAILY, #90 TAB 4 Refills Prov:INESSASRIDEVI J BAND SAWYER-BC, ONC 06/14/17 Diet: Diabetic Activity: As Tolerated Copies to: REILLY REVELES MD Venous Thromboembolism Antithrombotics Is Pt On Any Antithrombotics?: Yes Problem Qualifiers (1) Adenocarcinoma of lung: Laterality: left Qualified Codes: C34.92 - Malignant neoplasm of unspecified part of left bronchus or lung (2) Hypertension: Hypertension type: essential hypertension Qualified Codes: I10 - Essential ( primary) hypertension ASHLEY GREEN DO Dec 26, 2017 12:09
[2017-12-26 13:18] VITALS: Ht 167.6 cm; Wt 61.8 kg
[2017-12-26] MEDS ORDERED: ATORVASTATIN 40 MG TAB PO SCH (21:00)
== END 2017-12-26 14:20 | disposition home or self-care (01) | DRG 176 ==
LOC: ER 21:36 → MED 12-26 01:30
PROVIDERS: ADMIT Internal Medicine; ATTEND Internal Medicine
DX: I26.99 Other pulmonary embolism without acute cor pulmonale (principal); C34.32 Malignant neoplasm of lower lobe, left bronchus or lung; E11.9 Type 2 diabetes mellitus without complications; I25.10 Atherosclerotic heart disease of native coronary artery without angina pectoris; I10 Essential (primary) hypertension; J44.9 Chronic obstructive pulmonary disease, unspecified; D64.9 Anemia, unspecified; E78.00 Pure hypercholesterolemia, unspecified; Z99.81 Dependence on supplemental oxygen; Z90.710 Acquired absence of both cervix and uterus; Z87.891 Personal history of nicotine dependence; Z98.1 Arthrodesis status
CPT/HCPCS: 36416; 70450; 71275; 81001; 82040; 82247; 82310; 82374; 82435; 82565; 82947; 82948; 83880; 84075; 84132; 84155; 84295; 84450; 84460; 84484; 84520; 85025; 85379; 93005; 99284; A4353; J1650; J2405; J7030; Q9967

== ENCOUNTER 2017-12-27 15:47 | Outpatient (RCR) | payer MEDICARE, OTHER ==
[~2017-12-27 15:47] MED LIST changes: +ALPH200T3 PO; +APIX5TAB PO; +BIOT300T6 PO; +CHOL500025 PO; +CYAN500T54 PO; +MAGN250T34 PO; +TRAZ100T31 PO; +UBID200C21 PO
[2017-12-27 15:58] VITALS: BP 149/81
--- NOTE | 2017-12-27 20:44 | ONCOLOGY FOLLOW UP NOTE ---
EVENT DATE: December 27, 2017 DIAGNOSES 1. Left lung adenocarcinoma. 2. Anemia. 3. Diabetes mellitus, type 2. 4. Coronary artery disease status post heart attack and two stents placed in September 2014. 5. History of pneumonia. 6. Hypercholesterolemia. 7. Possible hypothyroidism. CHIEF COMPLAINT Patient is here today for followup of her left lung cancer. ONCOLOGY HISTORY The patient is an 82-year-old woman who was seen by me in September 2015 for evaluation of anemia. The patient had a PET-CT scan done on June 14, 2015 which showed linear consolidation in the left lower lobe, stable in configuration compared to previous CT-A chest done in February of 2015, which was suggestive of benign etiology. There was no suspicious hypermetabolic activity elsewhere. A 6 mm left lower lobe nodule remained stable. On July 01, 2016, the patient had a CT-A of chest done for chest pain and elevated D- Dimer, and that CT-A of chest did not show any pulmonary embolism, but it showed 1.9 cm parenchymal nodule in the left lower lobe, which has significantly grown in size compared to her previous study in January of 2016. There was also a parenchymal density in the superior segment of the left lower lobe. The patient ended by having CT-guided biopsy of the left lower lobe nodule done on July 12, 2016, and the final pathology after expert consultation came back positive for adenocarcinoma, papillary growth type. PET- CT scan done on July 27, 2016 did reveal left lung base mass which increased from 2.7 x 1.6 and is currently 3.7 x 2.1 with SUV 4.6. Previously it was 3.5. There was a separate nodule in the left lower lobe, which abuts the descending aorta, which also increased in size. It currently measures 2.1 x 1.6. Previously it was 1.25 x 0.4. It was PET negative in the past but currently it has an SUV of 4. There is a pleural-based mass present along the left upper lobe of 1.8 x 1.1 cm with SUV 2.5 with a focus of increased activity in the left hilum with SUV 2.9 but no corresponding lymph node. MRI of the brain done on July 24, 2016 did reveal a single focus of enhancement along the cortical margin of the left parietal lobe, which is indeterminate for metastatic disease. The patient started chemoradiation with carboplatin and Alimta on August 17, 2016. The patient completed four courses of carboplatin and Alimta on October 19, 2016. HISTORY OF PRESENT ILLNESS Patient is here today for followup of her left lung cancer. She is complaining of shortness of breath especially on exertion. She has also occasional nausea. She has numbness in her toes. She is weak, tired and fatigued. She was diagnosed recently with pulmonary embolus after her CT chest done on December 25, 2017, and the patient started treatment with Eliquis for that. PAST MEDICAL HISTORY 1. Anemia. 2. Type 2 diabetes mellitus. 3. Coronary artery disease. 4. History of pneumonia. 5. Hypercholesterolemia. 6. Right pulmonary embolism by CT chest done on December 25, 2017. PAST SURGICAL HISTORY Hysterectomy in 1990. SOCIAL HISTORY The patient is . She has two daughters and one son. She is retired from office work. Denies any abuse of alcohol or illicit drugs. She quit smoking September 2014 when she was diagnosed with heart attack. Prior to that she smoked one pack a day for sixty years. FAMILY HISTORY Noncontributory. CURRENT MEDICATIONS 1. Methimazole 5 mg daily. 2. Metoprolol 25 mg daily. 3. Vitamin D3, 2000 units daily. 4. Probiotic one capsule daily. 5. Vitamin B12, 500 mcg daily. 6. Metformin 250 mg twice daily. 7. Fish oil 300 mg daily. 8. Multivitamin half tablet daily. 9. Alprazolam 0.5 mg as needed. 10. Lipitor 40 mg daily. 11. Lisinopril 10 mg daily. 12. Plavix 75 mg daily. 13. Aspirin 81 mg daily. ALLERGIES No known drug allergies. REVIEW OF SYSTEMS CONSTITUTIONAL: No appetite or weight change. No fever, chills or sweating. No recent infection. HEENT: Ears: No tinnitus or hearing problem. Nose: She has nasal discharge and epistaxis. Throat: No sore throat or mouth ulcers. Eyes: No diplopia or visual changes. RESPIRATORY: The patient has exertional shortness of breath. CARDIOVASCULAR: No chest pain, orthopnea, or paroxysmal nocturnal dyspnea (PND) . No edema. No palpitations. GASTROINTESTINAL: She has occasional nausea. No vomiting. No diarrhea or constipation. No change in bowel movements. No heartburn or swallowing difficulties. No abdominal pain. No jaundice. No hematemesis, melena or rectal bleeding. GENITOURINARY: No hematuria or dysuria. MUSCULOSKELETAL: No pain in the muscles, joints or bones. NEUROLOGICAL: She has tingling and numbness in the toes. HEMATOLOGIC/LYMPHATIC: She is weak, tired and fatigued. SKIN: No skin rash or lumps. PSYCHIATRIC: No anxiety or depression. PHYSICAL EXAMINATION GENERAL: Looks stable. Well-developed, well-nourished, and in no acute distress. VITAL SIGNS: Blood pressure 149/81, pulse 75 per minute, respirations 16 per minute, temperature 97.2, pulse ox 90% on room air. HEENT: Head: Atraumatic. No sinus tenderness to palpation. Eyes: No icterus or conjunctivitis. Mouth and throat: No oral thrush or mucositis. NECK: Supple. No cervical or supraclavicular lymphadenopathy. LUNGS: Clear to auscultation and percussion bilaterally. HEART: Regular rate and rhythm. No gallops, murmurs, clicks or rubs. ABDOMEN: Soft and lax. No tenderness. No hepatosplenomegaly. No masses. EXTREMITIES: No cyanosis, clubbing or edema. LYMPHATICS: No peripheral lymphadenopathy. NEUROLOGICAL: Conscious, alert and oriented times three. No focal motor or sensory deficits. PSYCHIATRIC: Mood and affect appear normal. SKIN: No skin rash, bruise or purpuric eruption. DIAGNOSTIC DATA CBC showed white count 7.1, hemoglobin 15.5, hematocrit 44.8, platelets 284, 000. Chem panel totally normal except for blood sugar 128. CT chest done on December 25, 2017 did reveal multiple small pulmonary emboli and segmental and subsegmental arteries of the right middle lobe and right lower lobe. The consolidation in the left lower lobe and the scarring of the lingula unchanged. The multifocal pulmonary nodules are also the same. . ASSESSMENT 1. Stage IIIA (ct4 cN1 cM0) left lower lobe adenocarcinoma. Tumor size was 1.9 cm by CTA chest done in June 2016. CT-guided biopsy of the left lower lobe mass done July 12, 2016 came back positive for adenocarcinoma, papillary type. ALK mutation, EGFR mutation, ROS1 and PD-L1 expression came back negative except PD-L1 was 25% positive. PET/CT scan revealed the presence of two separate nodules in the left lower lobe and one in the left upper lobe, and increased uptake in the left hilum, but no systemic metastasis. MRI of the brain revealed the punctate focus indeterminate for metastatic disease of the left parietal lobe. Tumor was staged as stage IIIA. Patient received chemoradiation. She received carboplatin and Alimta for four cycles, received between August 17, 2016 through October 19, 2016. CT chest November 15, 2016 revealed improvement of the consolidation of the left lower lobe. Her PET scan showed response to her treatment. Her tumor shrunk from 2.8 to 2.4 cm and SUV dropped from 4.6 to 3[address] Her current CT chest did not show any new changes. The consolidation in the left lower lobe and the scarring of the lingula unchanged. The multifocal pulmonary nodules are also the same. I am planning to continue followup. I will see her again in three months with CBC, chem panel and chest x-ray. 2. Multiple pulmonary emboli, small in the segmental and subsegmental arteries of the right middle lobe and right lower lobe by CTA chest done on December 25, 2017. Patient started Eliquis 10 mg twice daily for a week, then 5 mg twice daily for a total of six months. With her swelling and pain in her left lower extremity, I am planning to get a Doppler ultrasound of the lower extremities to rule out the possibility of DVT. Patient went on a long trip by airplane to [place] late October. Will continue to monitor. 3. Type 2 diabetes. 4. History of coronary artery disease status post heart attack and triple bypass surgery. PLAN 1. Continue followup. 2. Patient to return in three months with CBC, chem panel, chest x-ray. 3. Continue Eliquis for a total of six months. 4. Home oxygen as the patient has exertional hypoxemia and palpitations at home , and she is not using oxygen except at night. We will inform the office of Dr. Melvin about that. 5. Patient to contact us for any new concern or complaints. [facility] CENTERHuy
--- NOTE | 2017-12-28 14:46 | RADIOLOGY IMAGING REPORT ---
FACILITY: [facility] PATIENT NAME: Silva Brown : 1935 MR: [id number] V: [id number] EXAM DATE: ORDERING PHYSICIAN: JHOAN CEDEÑO TECHNOLOGIST: Location: Patient: Silva Brown : 1935 Visit/Account:[id number] Date of Sevice: 12/28/2017 VENOUS DOPP LOWER BILAT EXTREM HISTORY: History of pulmonary embolus. Left calf pain. COMPARISON STUDIES: None. FINDINGS: Grayscale compression, duplex and color Doppler interrogation of the bilateral lower extremity deep v eins from common femoral vein to proximal calves were performed. The greater saphenous veins in the p roximal thighs were evaluated using similar technique. Right lower extremity: Common femoral vein: Normal. Deep femoral vein: Normal. Femoral vein: Normal. Popliteal vein: Normal. Visualized deep calf veins: Normal. Greater saphenous vein in the proximal thigh: Normal. Popliteal fossa: Normal. Left lower extremity: Common femoral vein: Normal. Deep femoral vein: Normal. Femoral vein: Normal. Popliteal vein: Normal. Visualized deep calf veins: Normal. Greater saphenous vein in the proximal thigh: Normal. Popliteal fossa: Normal. IMPRESSION: 1. There is no deep venous thrombosis of either lower extremity. Report Dictated By: Jessica Ricardo at 12/28/2017 2:38 PM Report E-Signed By: Jessica Ricardo at 12/28/2017 2:42 PM WSN:[id number]
== END 2018-01-04 09:18 | disposition home or self-care (01) ==
LOC: ONC 15:47
PROVIDERS: ATTEND Internal Medicine Hematology
DX: C34.32 Malignant neoplasm of lower lobe, left bronchus or lung (principal); R53.0 Neoplastic (malignant) related fatigue; E61.1 Iron deficiency; E04.2 Nontoxic multinodular goiter; I25.10 Atherosclerotic heart disease of native coronary artery without angina pectoris; J90 Pleural effusion, not elsewhere classified; R91.1 Solitary pulmonary nodule; E27.8 Other specified disorders of adrenal gland; K76.9 Liver disease, unspecified
CPT/HCPCS: 93970; G0463; 99212

== ENCOUNTER → 2018-03-22 | Outpatient (CLI) | payer MEDICARE, OTHER ==
[~2018-03-22] MED LIST changes: -METF-411 PO; -METF-421 PO; +METF-450 PO; +METF-452 PO
--- NOTE | 2018-03-22 15:23 | RADIOLOGY IMAGING REPORT ---
FACILITY: [facility] PATIENT NAME: JENNIFER ROSARIO : [id number] MR: [id number] V: [id number] EXAM DATE: ORDERING PHYSICIAN: SRIDEVI WYLIE TECHNOLOGIST: Candi Martinez PROCEDURE:BILATERAL DIGITAL SCREENING MAMMOGRAM WITH CAD ASSISTED INTERPRETATION & 3D TOMOSYNTHESIS COMPARISON:Prior mammograms 12/21/16. INDICATIONS:screening FINDINGS: Moderately heterogeneous fibroglandular tissue is seen throughout the breasts. The parenchymal pattern has remained stable allowing for difference in mammographic technique & patient positioning. There is no evidence of malignant appearing mass, malignant appearing calcifications or other secondary sign of malignancy in either breast. DIAGNOSTIC CATEGORY 1--NEGATIVE. RECOMMENDATIONS: ROUTINE MAMMOGRAM AND CLINICAL EVALUATION. IMPRESSION: BIRADS 1: Negative. No significant abnormality is seen. Dictated by: Amy Pollack M.D. on 03/22/2018 at 14:33 Transcribed by: AAKASH on 03/22/2018 at 14:48 Approved by: Amy Pollack M.D. on 03/22/2018 at 15:22 [facility]
== END ==
LOC: MAMO 04:28
PROVIDERS: ATTEND Nurse Practitioner Family
DX: Z12.31 Encounter for screening mammogram for malignant neoplasm of breast (principal)
CPT/HCPCS: 77063; 77067

== ENCOUNTER 2018-03-28 10:16 | Outpatient (RCR) | payer MEDICARE, OTHER ==
[2018-03-21 10:31] VITALS: BP 134/68
[2018-03-21 10:52] LABS: PLATELET COUNT, AUTOMATED 298 K/uL (150-450)
--- NOTE | 2018-03-21 11:53 | RADIOLOGY IMAGING REPORT ---
FACILITY: [facility] - [place] PATIENT NAME: Silva Brown : 1935 MR: [id number] V: [id number] EXAM DATE: ORDERING PHYSICIAN: JHOAN CEDEÑO TECHNOLOGIST: Location: [facility] [place] Patient: Silva Brown : 1935 Visit/Account:[id number] Date of Sevice: 03/21/2018 Exam type: CHEST PA AND LAT History: Lung cancer follow-up, no chest complaints Comparison: October 30, 2016. And CT of the chest October 02, 2017 Findings: Wedge-shaped consolidation in the left lower lobe appears some are to the prior study. There is coar se linear stranding left midlung field appears similar to the recent CT of the chest. Previously not ed pleural-based nodules are not as well delineated although would be better evaluated by CT. There is left apical pleural thickening that appears similar to the prior study. There is no evidence of a cute appearing infiltrates pleural effusions or overt pulmonary edema. The cardiac silhouette is nor mal in size. IMPRESSION: 1. Wedge-shaped consolidation left lower lobe appears similar to the prior study and is apparently c hronic. Coarse linear stranding left midlung field slightly increased when compared the prior chest radiograp h from October 30, 2016 although appears similar to the prior CT from October 02, 2017 could represent atel ectasis or scarring. Report Dictated By: Amy Pollack MD at 03/21/2018 11:42 AM Report E-Signed By: Amy Pollack MD at 03/21/2018 11:48 AM WSN:[email or web address]
[2018-03-28 10:31] VITALS: BP 148/78
--- NOTE | 2018-03-29 08:28 | [facility]AR[facility] ONCOLOGY NOTE ---
EVENT DATE: March 28, 2018 DIAGNOSES 1. Left lung adenocarcinoma. 2. Anemia. 3. Diabetes mellitus, type 2. 4. Coronary artery disease status post heart attack and two stents placed in September 2014. 5. History of pneumonia. 6. Hypercholesterolemia. 7. Possible hypothyroidism. CHIEF COMPLAINT Patient is here today for followup of her left lung cancer. ONCOLOGY HISTORY The patient is an 82-year-old woman who was seen by me in September 2015 for evaluation of anemia. The patient had a PET-CT scan done on June 14, 2015 which showed linear consolidation in the left lower lobe, stable in configuration compared to previous CT-A chest done in February of 2015, which was suggestive of benign etiology. There was no suspicious hypermetabolic activity elsewhere. A 6 mm left lower lobe nodule remained stable. On July 01, 2016, the patient had a CT-A of chest done for chest pain and elevated D- Dimer, and that CT-A of chest did not show any pulmonary embolism, but it showed 1.9 cm parenchymal nodule in the left lower lobe, which has significantly grown in size compared to her previous study in January of 2016. There was also a parenchymal density in the superior segment of the left lower lobe. The patient ended by having CT-guided biopsy of the left lower lobe nodule done on July 12, 2016, and the final pathology after expert consultation came back positive for adenocarcinoma, papillary growth type. PET-CT scan done on July 27, 2016 did reveal left lung base mass which increased from 2.7 x 1.6 and is currently 3.7 x 2.1 with SUV 4.6. Previously it was 3.5. There was a separate nodule in the left lower lobe, which abuts the descending aorta, which also increased in size. It currently measures 2.1 x 1.6. Previously it was 1.25 x 0.4. It was PET negative in the past but currently it has an SUV of 4. There is a pleural-based mass present along the left upper lobe of 1.8 x 1.1 cm with SUV 2.5 with a focus of increased activity in the left hilum with SUV 2.9 but no corresponding lymph node. MRI of the brain done on July 24, 2016 did reveal a single focus of enhancement along the cortical margin of the left parietal lobe, which is indeterminate for metastatic disease. The patient started chemoradiation with carboplatin and Alimta on August 17, 2016. The patient completed four courses of carboplatin and Alimta on October 19, 2016. HISTORY OF PRESENT ILLNESS Patient is here today for followup of her left lung cancer. She is complaining of some runny nose and bloody nose sometime. She is short-winded also. She has low oxygen when she exerts herself. 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 PAST MEDICAL HISTORY 1. Anemia. 2. Type 2 diabetes mellitus. 3. Coronary artery disease. 4. History of pneumonia. 5. Hypercholesterolemia. 6. Right pulmonary embolism by CT chest done on December 25, 2017. PAST SURGICAL HISTORY Hysterectomy in 1990. SOCIAL HISTORY The patient is . She has two daughters and one son. She is retired from office work. Denies any abuse of alcohol or illicit drugs. She quit smoking September 2014 when she was diagnosed with heart attack. Prior to that she smoked one pack a day for sixty years. FAMILY HISTORY Noncontributory. CURRENT MEDICATIONS 1. Methimazole 5 mg daily. 2. Metoprolol 25 mg daily. 3. Vitamin D3, 2000 units daily. 4. Probiotic one capsule daily. 5. Vitamin B12, 500 mcg daily. 6. Metformin 250 mg twice daily. 7. Fish oil 300 mg daily. 8. Multivitamin half tablet daily. 9. Alprazolam 0.5 mg as needed. 10. Lipitor 40 mg daily. 11. Lisinopril 10 mg daily. 12. Plavix 75 mg daily. 13. Aspirin 81 mg daily. ALLERGIES No known drug allergies. REVIEW OF SYSTEMS CONSTITUTIONAL: No appetite or weight change. No fever, chills or sweating. No recent infection. HEENT: Ears: No tinnitus or hearing problem. Nose: She has nasal discharge and bloody nose sometimes. Throat: No sore throat or mouth ulcers. Eyes: No diplopia or visual changes. RESPIRATORY: She is short-winded, especially when she exerts herself. CARDIOVASCULAR: No chest pain, orthopnea, or paroxysmal nocturnal dyspnea (PND). No edema. No palpitations. GASTROINTESTINAL: She has occasional nausea. No vomiting. No diarrhea or constipation. No change in bowel movements. No heartburn or swallowing difficulties. No abdominal pain. No jaundice. No hematemesis, melena or rectal bleeding. GENITOURINARY: No hematuria or dysuria. MUSCULOSKELETAL: No pain in the muscles, joints or bones. NEUROLOGICAL: She has neuropathy in the right foot. HEMATOLOGIC/LYMPHATIC: She bruises easily. SKIN: No skin rash or lumps. PSYCHIATRIC: No anxiety or depression. PHYSICAL EXAMINATION GENERAL: Looks stable. Well-developed, well-nourished, and in no acute distress. VITAL SIGNS: Blood pressure 148/78, pulse 4 per minute, respirations 16 per minute, temperature 97.4, pulse ox 91% on room air. HEENT: Head: Atraumatic. No sinus tenderness to palpation. Eyes: No icterus or conjunctivitis. Mouth and throat: No oral thrush or mucositis. NECK: Supple. No cervical or supraclavicular lymphadenopathy. LUNGS: Clear to auscultation and percussion bilaterally. HEART: Regular rate and rhythm. No gallops, murmurs, clicks or rubs. ABDOMEN: Soft and lax. No tenderness. No hepatosplenomegaly. No masses. EXTREMITIES: No cyanosis, clubbing or edema. LYMPHATICS: No peripheral lymphadenopathy. NEUROLOGICAL: Conscious, alert and oriented times three. No focal motor or sensory deficits. PSYCHIATRIC: Mood and affect appear normal. SKIN: No skin rash, bruise or purpuric eruption. DIAGNOSTIC DATA CBC showed white count 6.6, hemoglobin 13.9, hematocrit 41.3, platelets 298,000. Chem panel totally normal except for blood sugar 132. ASSESSMENT 1. Stage IIIA (ct4 cN1 cM0) left lower lobe adenocarcinoma. Tumor size was 1.9 cm by CTA chest done in June 2016. CT-guided biopsy of the left lower lobe mass done July 12, 2016 came back positive for adenocarcinoma, papillary type. ALK mutation, EGFR mutation, ROS1 and PD-L1 expression came back negative except PD-L1 was 25% positive. PET/CT scan revealed the presence of two separate nodules in the left lower lobe and one in the left upper lobe with increased uptake in the left hilum but no systemic metastasis. MRI of the brain revealed the punctate focus indeterminate for metastatic disease of the left parietal lobe. Tumor was staged as stage IIIA. Patient received chemoradiation. She received carboplatin and Alimta for four cycles, received between August 17, 2016 through October 19, 2016. CT chest November 15, 2016 revealed improvement in the consolidation of the left lower lobe. Her PET scan showed response to her treatment. Her tumor shrunk from 2.8 to 2.4 cm and SUV dropped from 4.6 to 3.4. Patient is scheduled to have a CT chest in April 2018 and I will await the results of that CT scan. I am planning to see her again in three months with CBC, chem panel and we will continue the blood thinner for her pulmonary embolism. 2. Multiple pulmonary emboli, small in the segmental and subsegmental arteries of the right middle lobe and right lower lobe by CTA chest done on December 25, 2017. Patient started Eliquis 10 mg twice daily for a week, then 5 mg twice daily for a total of 6 to 12 months. Patient was on a long trip by airplane to [place] in late October prior to her developmental pulmonary embolism. We will continue to monitor. 3. Type 2 diabetes. 4. History of coronary artery disease, status post heart attack and triple bypass surgery. PLAN 1. Continue followup. 2. Patient to return in three months with CBC, chem panel. 3. Continue Eliquis for a total of 6 to 12 months. 4. Home oxygen. 5. Pulmonary rehab for her hypoxemia on exertion. 6. Patient to contact us for any new concern or complaints. GUILHERME
== END 2018-06-18 ==
LOC: ONC 10:16
PROVIDERS: ATTEND Internal Medicine Hematology
DX: C34.32 Malignant neoplasm of lower lobe, left bronchus or lung (principal); R53.0 Neoplastic (malignant) related fatigue; Z92.21 Personal history of antineoplastic chemotherapy; Z92.3 Personal history of irradiation; E11.9 Type 2 diabetes mellitus without complications; I25.10 Atherosclerotic heart disease of native coronary artery without angina pectoris; G62.9 Polyneuropathy, unspecified; R06.02 Shortness of breath; D50.9 Iron deficiency anemia, unspecified; E78.00 Pure hypercholesterolemia, unspecified
CPT/HCPCS: 36415; 71046; 85025; G0463; 82040; 82247; 82310; 82374; 82435; 82565; 82947; 84075; 84132; 84155; 84295; 84450; 84460; 84520; 99212

== ENCOUNTER 2018-04-17 06:45 | Outpatient (RCR) | payer MEDICARE, OTHER ==
[2017-10-02 08:39] VITALS: BP 137/63
[2018-04-17 09:21] LABS: PLATELET COUNT, AUTOMATED 284 K/uL (150-450)
[2018-04-17] MEDS ORDERED: IOPAMIDOL 76% 75 ML INFUS BTL 75 ML ONE (09:45)
--- NOTE | 2018-04-17 12:07 | RADIOLOGY IMAGING REPORT ---
FACILITY: [facility] - [place] PATIENT NAME: Silva Brown : 1935 MR: [id number] V: [id number] EXAM DATE: ORDERING PHYSICIAN: SANDRINE ZHAO TECHNOLOGIST: Location: [facility] Patient: Silva Brown : 1935 Visit/Account:[id number] Date of Sevice: 04/17/2018 ADDENDUM #1 ADDENDUM: A 2.1 cm low-density mass is present in the left adrenal gland consistent with an adrenal adenoma, es sentially unchanged. Report Dictated By: Tesfaye Lin MD at 04/17/2018 12:39 PM Report E-Signed By: Tesfaye Lin MD at 04/17/2018 12:39 PM ORIGINAL REPORT Chest CT scan with contrast. HISTORY: Lung cancer. COMPARISON: 12/25/2017. [address] images were obtained of the chest using 75 mL intravenous Isovue. Sagittal and c oronal computer reconstructions were performed. One of the following dose optimization techniques wa s utilized in the performance of this exam: Automated exposure control; adjustment of the mA and/or k V according to the patient's size; or use of an iterative reconstruction technique. Specific detail s can be referenced in the facility's radiology CT exam operational policy. FINDINGS: The thoracic aorta is partially calcified. The ascending aorta measures 3.5 cm in greatest AP diamet er. The upper descending aorta measures 2.6 cm in greatest AP diameter. The coronary arteries are c alcified. The central pulmonary arteries are unremarkable. The peripheral pulmonary arteries are no t well opacified. Several small lymph nodes measuring less than 1.5 cm diameter are scattered in the mediastinum. Multiple nodules are scattered within an enlarged thyroid gland which extends inferior ly into the superior mediastinum, essentially unchanged. The lungs are voluminous. Small bullae are present in both lungs. Streaky and patchy opacities are present in the left lung base. Bronchovasc ular markings are crowded in the left posterior lung base and infrahilar region, unchanged. A pleura l-based nodularity measuring 1.8 cm in diameter is present along the anterior aspect of the left lung apex, unchanged. Biapical pleural scarring is unchanged. Mild pleural thickening is present along the left lung base, unchanged. The pleural surfaces are otherwise unremarkable. The liver parenchym a is diffusely decreased in density compared to normal. The abdominal aorta is calcified. Degenerat zoie changes are present in the spine. IMPRESSION: Left basilar consolidation and scarring, unchanged. 1.8 cm left apical pleural-based nodule, unchanged. COPD. Atherosclerosis. Multinodular goiter. Report Dictated By: Tesfaye Lin MD at 04/17/2018 11:21 AM Report E-Signed By: Tesfaye Lin MD at 04/17/2018 12:03 PM WSN:[email or web address]
--- NOTE | 2018-04-24 04:54 | ONCOLOGY FOLLOW UP NOTE ---
EVENT DATE: April 17, 2018 REASON FOR VISIT Oncology surveillance for lung carcinoma, prior chemotherapy and radiation therapy. Patient is here to review the results of a recent CT of the thorax. ONCOLOGY DIAGNOSES 1. Adenocarcinoma of the left lung. Patient presented with a 3.7 x 2.1 cm carcinoma involving the left lower lobe with a separate tumor noted adjacent to the left chest wall at 1.8 x 1.1 cm. There was a third mass detected along the ascending aorta, which was most likely an infrahilar lymph node, at 2.1 x 1.6 cm. 2. Patient treated with four cycles of carboplatin and Alimta from 08/17/16 to 10/19/16 under the direction of Dr. Chakraborty. 3. Patient received external beam radiation therapy with multifield technique to 6800 cGy at standard fractionation, delivered 08/15/16 to 10/05/16 (all three lesions targeted). 4. Patient achieved complete response. INTERVAL HISTORY Silva is back in the oncology clinic accompanied by her for followup appointment. She is seen by Medical Oncology on an [id number] basis. She denies any hemoptysis or significant cough. No new headache or persistent bone pain. The CT scan was reviewed dated 04/17/18. That study revealed some minor scarring in the left lung base, which I believe is due to the prior radiation course. This appears to be slightly smaller on serial imaging. No significant lymphadenopathy is noted. The ascending aorta is 3.5 cm in measurement. The radiologist commented on a 2.1 cm low-density mass involving the left adrenal gland, consistent with adrenal adenoma. That adrenal gland is stable on my imaging review. I also reviewed the prior imaging and the imaging from a year ago. No signs of bone metastasis. No signs of hepatic metastasis. CBC and metabolic panel are normal. PAST MEDICAL HISTORY 1. History of coronary artery disease with previous GA. 2. History of pneumonia. 3. History of hypercholesterolemia. 4. History of thyroid disorder, NOS. 5. Type 2 diabetes. PAST SURGICAL HISTORY Hysterectomy in 1990. SOCIAL HISTORY The patient is . Retired information officer. Two daughters and one son. Smoking history listed above. MEDICATIONS 1. Metoprolol 25 mg daily. 2. Metformin 250 mg b.i.d. 3. Alprazolam 0.5 mg q.8-12h. p.r.n. 4. Lipitor 40 mg daily. 5. Lisinopril 10 mg daily. 6. Plavix 75 mg daily. 7. Aspirin 81 mg daily. 8. Methimazole 5 mg daily. MEDICATION ALLERGIES None. REVIEW OF SYSTEMS Comprehensive review of systems notable for pulmonary embolism approximately two to three months ago. Patient is now on oxygen continuous at 2L during the day. Sometimes she increases this to 3L. She occasionally has some nonspecific bone pain in the right ischium with walking, but not persistent. PHYSICAL EXAMINATION GENERAL: A pleasant 82-year-old female with thin build. VITAL SIGNS: Blood pressure 119/69, pulse 84, respirations 16. O2 saturation was 85% on room air but returned up to normal on oxygen. Weight is 143. LYMPHATIC: No lymphadenopathy. LUNGS: Clear today. No rales or wheezes. HEART: Heart sounds are regular. ABDOMEN: No gross organomegaly, mass, or tenderness. EXTREMITIES: No edema or cyanosis. IMPRESSION No evidence of lung cancer recurrence. The patient is, remarkably, approximately 18 months remote from cancer diagnosis, with complete response. PLAN Patient will follow up with Dr. Chakraborty in June. I thought that she could go to [id number] chest CTs at this time if she otherwise is stable. Consider [id number] blood work and clinical exams. I will see her again in six months or sooner p.r.n. She will follow up with Dr. Melvin for general medical needs. Overall, I am very pleased with her clinical course to date. [facility] HOSPITALHuy
== END 2018-06-07 15:30 | disposition home or self-care (01) ==
LOC: RAON 06:45
PROVIDERS: ATTEND Radiology Radiation Oncology
DX: C34.90 Malignant neoplasm of unspecified part of unspecified bronchus or lung (principal); E27.8 Other specified disorders of adrenal gland; J44.9 Chronic obstructive pulmonary disease, unspecified; E04.2 Nontoxic multinodular goiter
CPT/HCPCS: 36415; 71260; 85025; G0463; Q9967; 82040; 82247; 82310; 82374; 82435; 82565; 82947; 84075; 84132; 84155; 84295; 84450; 84460; 84520; 99212

== ENCOUNTER → 2018-04-22 | Outpatient (CLI) | payer MEDICARE, OTHER | LOC: RESP 01:01 | PROVIDERS: ATTEND Internal Medicine Hematology | DX: J44.9 Chronic obstructive pulmonary disease, unspecified (principal) | CPT/HCPCS: 94060; 94726; 94729 ==

== ENCOUNTER 2018-06-27 11:13 | Outpatient (RCR) | payer MEDICARE, OTHER ==
[2018-06-26 11:27] VITALS: BP 157/88
[2018-06-26 11:44] LABS: PLATELET COUNT, AUTOMATED 321 K/uL (150-450)
[2018-06-27 11:26] VITALS: BP 157/85
--- NOTE | 2018-06-29 21:02 | ONCOLOGY FOLLOW UP NOTE ---
EVENT DATE: June 27, 2018 CHIEF COMPLAINT Followup for left lung cancer. HISTORY OF PRESENT ILLNESS Patient is an 82-year-old female who was seen today in three-month followup for left lung adenocarcinoma. She continues on oxygen, but is managing this fairly well. She had some mild cough, but this is nonproductive. She describes being somewhat hoarse and wonders if she has allergies. She has significant clear nasal discharge. Otherwise, energy, appetite, and weight are stable, and she denies any other new complaints. ONCOLOGY HISTORY The patient is an 82-year-old woman who was seen by me in September 2015 for evaluation of anemia. The patient had a PET-CT scan done on June 14, 2015 which showed linear consolidation in the left lower lobe, stable in configuration compared to previous CT-A chest done in February of 2015, which was suggestive of benign etiology. There was no suspicious hypermetabolic activity elsewhere. A 6 mm left lower lobe nodule remained stable. On July 01, 2016, the patient had a CT-A of chest done for chest pain and elevated D- Dimer, and that CT-A of chest did not show any pulmonary embolism, but it showed 1.9 cm parenchymal nodule in the left lower lobe, which has significantly grown in size compared to her previous study in January of 2016. There was also a parenchymal density in the superior segment of the left lower lobe. CT-guided biopsy of the left lower lobe nodule done on July 12, 2016 was positive for adenocarcinoma, papillary growth type. PET-CT scan done on July 27, 2016 did reveal left lung base mass which increased from 2.7 x 1.6 and is currently 3.7 x 2.1 with SUV 4.6, previously 3.5. There was a separate nodule in the left lower lobe, which abuts the descending aorta, which also increased in size measuring 2.1 x 1.6; previously 1.25 x 0.4 with an SUV of 4. There is a pleural-based mass present along the left upper lobe of 1.8 x 1.1 cm with SUV 2.5 with a focus of increased activity in the left hilum with SUV 2.9 but no corresponding lymph node. MRI of the brain done on July 24, 2016 did reveal a single focus of enhancement along the cortical margin of the left parietal lobe, which is indeterminate for metastatic disease. Completed chemoradiation with carboplatin and Alimta from 08/15/16 through 10/05/16. She then completed four courses of carboplatin and Alimta on October 19, 2016. PAST MEDICAL HISTORY 1. Left lung adenocarcinoma. 2. Anemia. 3. Type 2 diabetes. 4. Coronary artery disease. 5. Hyperlipidemia. 6. Right pulmonary embolism, December 2017. SURGICAL HISTORY Hysterectomy, 1990. FAMILY HISTORY Negative for malignancy. SOCIAL HISTORY Patient is . They have two daughters and one son. She is retired. She quit smoking in September 2014 when she had an ID, but prior to that smoked one pack a day for 60 years. No alcohol or illicit drug use. MEDICATIONS 1. Eliquis 5 mg b.i.d. 2. Ferrous sulfate. 3. Folic acid 1 mg daily. 4. Aspirin 81 mg daily. 5. Biotin 200 mcg daily. 6. Co-Q10. 7. B12, 500 mcg daily. 8. Trazodone 100 mg at bedtime. 9. Metformin 1000 mg b.i.d. 10. Vitamins. 11. Metoprolol 100 mg daily. 12. Lisinopril 10 mg daily. 13. Lipitor 40 mg daily. ALLERGIES No known drug allergies. REVIEW OF SYSTEMS A 12-point review of systems is performed and is negative except as stated above. PHYSICAL EXAMINATION VITAL SIGNS: Weight 66.5 kg. BP 157/85, P 82, R 16, temp 96.9, O2 sat 90% on 2L nasal cannula. HEAD: Normocephalic, atraumatic. EYES: Sclerae anicteric. MOUTH: Moist mucous membranes. No lesions. Postnasal drip visible in posterior pharynx. NECK: Supple. No palpable adenopathy. LUNGS: Slightly diminished, but clear bilaterally. CARDIOVASCULAR: Heart rate regular, 82 per minute, without murmur, S3, or S4. ABDOMEN: Soft, nontender, with active bowel sounds. EXTREMITIES: No edema. NEUROLOGIC: Nonfocal. LABORATORY CBC on 06/26/18 showed a WBC of 7.4, hemoglobin 13.8, hematocrit 40.5, platelets 321,000. CMP was within normal limits. IMPRESSION AND PLAN The patient is an 82-year-old female diagnosed with stage IIIA (cT4 cN1 cM0) left lower lobe adenocarcinoma. She completed four cycles of carboplatin and Alimta from 08/17/16 through 04/17/17. CT scan in December 2017 showed multiple pulmonary emboli. She began Eliquis at that time. 1. Stage IIIA left lower lobe adenocarcinoma. Most recent CT scan on 04/17/18 showed left basilar consolidation and scarring, unchanged. The 1.8 cm left apical pleural-based nodule was also described as unchanged. Chronic obstructive pulmonary disease was noted throughout. The 2.1 cm low-density mass in the left adrenal gland was consistent with an adrenal adenoma, essential unchanged. She has no signs or symptoms of disease recurrence and is grateful for these results. 2. Multiple pulmonary emboli. This occurred after a long trip by airplane to [place]. She began Eliquis in December 2017. Dr. Chakraborty is planning to treat her for a total of 12 months. Will repeat CTA of the chest in mid December 2018. 3. Hypoxia. Continue home oxygen. She was referred for pulmonary rehab, but this did not happen. I will again refer today. 4. Follow up with Dr. Mosqueda in October 2018. 5. Follow up with Dr. Chakraborty in early January after undergoing CTA of the chest in mid December. GUILHERME
== END 2018-07-15 13:44 | disposition home or self-care (01) ==
LOC: ONC 11:13
PROVIDERS: ATTEND Internal Medicine Hematology
DX: C34.32 Malignant neoplasm of lower lobe, left bronchus or lung (principal); R53.0 Neoplastic (malignant) related fatigue; Z92.21 Personal history of antineoplastic chemotherapy; Z92.3 Personal history of irradiation; E11.9 Type 2 diabetes mellitus without complications; I25.10 Atherosclerotic heart disease of native coronary artery without angina pectoris; G62.9 Polyneuropathy, unspecified; R06.02 Shortness of breath; D50.9 Iron deficiency anemia, unspecified; E78.00 Pure hypercholesterolemia, unspecified; Z99.81 Dependence on supplemental oxygen
CPT/HCPCS: 36415; 85025; G0463; 82040; 82247; 82310; 82374; 82435; 82565; 82947; 84075; 84132; 84155; 84295; 84450; 84460; 84520; 99212

== ENCOUNTER 2018-09-19 11:16 | Outpatient (RCR) | payer MEDICARE, OTHER ==
[~2018-09-19 11:16] MED LIST changes: -CYAN100T25 PO; +CYAN100T26 PO
== END 2018-10-09 ==
LOC: CARD 11:16
PROVIDERS: ATTEND Internal Medicine Hematology
DX: I26.99 Other pulmonary embolism without acute cor pulmonale (principal); C34.90 Malignant neoplasm of unspecified part of unspecified bronchus or lung
CPT/HCPCS: G0239 ×20

== ENCOUNTER → 2018-09-30 | Outpatient (CLI) | payer MEDICARE, OTHER | LOC: US 09-25 14:37 | PROVIDERS: ATTEND Internal Medicine Cardiovascular Disease | DX: I05.1 Rheumatic mitral insufficiency (principal) | CPT/HCPCS: 93306 ==

== ENCOUNTER 2018-10-22 13:56 | Outpatient (RCR) | payer MEDICARE, OTHER ==
[~2018-10-22 13:56] MED LIST changes: -RANI-366 PO; +RANI-54 PO; -TRAZ50TA34 PO; +TRAZ50TA52 PO
[2018-10-22 14:05] VITALS: BP 159/85
--- NOTE | 2018-10-23 04:07 | ONCOLOGY FOLLOW UP NOTE ---
EVENT DATE: October 22, 2018 CHIEF COMPLAINT/REASON FOR VISIT Patient has adenocarcinoma of the left lung. Patient is here for clinical reassessment. ONCOLOGY HISTORY 1. Adenocarcinoma of the left lower lobe, status post biopsy, 07/12/16. Tumor had a papillary subtype. 2. Patient received focal radiation therapy to the left lower lobe nodule measuring 2.1 x 1.6 cm. That nodule abuts the ascending aorta and potentially is a lymph node. A second lesion was treated in the left upper lobe, measuring 1.8 x 1.1 cm. 3. Patient had initial chemotherapy with carboplatin and Alimta 08/15/16 to 10/05/16. This was followed by carboplatin and Alimta through 10/19/16. 4. Patient received focal radiation therapy to two separate left lung lesions. Treatment was started 08/17/16 and completed 10/05/16 with excellent response. HISTORY OF PRESENT ILLNESS Silva is seen back in the radiation oncology clinic for a followup appointment with me today. Overall, she is doing well. She denies any progressive weight loss. No new headaches. She is not having any significant cough or hemoptysis. The patient is undergoing serial imaging on an [id number] basis. Her next imaging is scheduled for December, and she will see Dr. Chakraborty in one to two weeks thereafter. She will also have blood work at that time. In April, she had radiographic imaging which was stable. Left basilar consolidation and scarring was unchanged, and the 1.8 cm left apical pleural-based nodule was unchanged. I reviewed my initial note from 2016 to. The patient had a 3.7 x 2.1 cm tumor on PET/CT scan, which was initially targeted with radiotherapy with an SUV of 4.6. There was a separate tumor nodule in the left lower lobe measuring 2.1 x 1.6 cm, with metabolic activity. She was staged as T2 NX M1 due to an isolated pleural nodule. Radiation therapy of 6840 cGy with progressive field reduction technique; three separate sites were treated concurrently. She also received concurrent Alimta and carboplatin. Patient states that she was doing well. She did have an episode of thromboembolism, possibly related to airplane trip. That was back in December 2017, I believe. At that time, she had multiple pulmonary emboli and was started on Eliquis. For that reason, the patient's next CT scan in late December or early January will include a CTA for more accurate delineation of the pulmonary emboli status. PAST MEDICAL HISTORY 1. Adenocarcinoma of the left lung. 2. Pulmonary emboli. 3. Prior anemia with iron deficiency. 4. Type 2 diabetes. 5. Coronary artery disease with previous IN and two stents, placed September 2014. 6. Hypercholesterolemia. 7. Hypothyroidism. 8. Prior history of pneumonia. PAST SURGICAL HISTORY Prior hysterectomy in 1990. MEDICATIONS 1. Apixaban 5 mg tablet, 5 mg p.o. b.i.d., take two tablets twice a day for seven days, then take one tablet twice daily. 2. Ferrous sulfate 325 mg p.o. daily. 3. Folic acid 1 mg tablet p.o. daily. 4. Aspirin 81 mg p.o. daily. 5. Biotin 200 mcg p.o. daily. 6. Magnesium oxide 250 mg tablet p.o. daily. 7. Coenzyme Q10 200 mg p.o. daily. 8. Cyanocobalamin 500 mcg p.o. daily. 9. Alpha lipoic acid 200 mg p.o. daily. 10. Trazodone HCL 100 mg p.o. at bedtime. 11. Nitroglycerin 0.4 mg sublingual every five minutes p.r.n. chest pain. 12. Metformin HCL 1000 mg, one tablet p.o. b.i.d. 13. Multivitamin, one p.o. daily. 14. Ascorbic acid 500 mg p.o. daily. 15. Methimazole 5 mg p.o. daily. 16. Metoprolol succinate 50 mg tablet p.o. daily. 17. Lisinopril 10 mg p.o. daily. 18. Atorvastatin 40 mg, one tablet p.o. at bedtime. SOCIAL HISTORY Patient , previously smoked, but stopped after a heart attack in 2014. She smoked one pack a day for 60 years. Retired business office coordinator. Has two daughters and one son. REVIEW OF SYSTEMS Entirely negative today with the exception of occasional dry cough. She remains on oxygen at 2L. She increases to 3L with exertion. PHYSICAL EXAM VITAL SIGNS: Weight is 144, stable. BP 159/85, pulse 84, respirations 16, O2 saturation 91% on room air. LYMPHATIC: No peripheral lymphadenopathy. LUNGS: Fair air exchange bilaterally. No rales or wheezes. CARDIOVASCULAR: Heart sounds regular. ABDOMEN: Soft. No gross organomegaly, mass or tenderness. EXTREMITIES: No edema. NEUROLOGIC: Intact. IMPRESSION Overall, the patient is doing remarkably well. She is two years remote from adenocarcinoma of the lung, treated with chemotherapy and radiation with no evidence of recurrence on her last studies. She will have updated studies within the next month. PLAN At this juncture, I will release the patient from the radiation oncology clinic, since she is following up on a regular basis with Dr. Chakraborty. She will continue her regular medical care with Dr. Melvin. I told her I would be happy to see her in the future if she had any needs for radiation therapy or if she requested any radiographic reviews from myself. GUILHERME
== END 2018-11-11 15:44 | disposition home or self-care (01) ==
LOC: RAON 13:56
PROVIDERS: ATTEND Radiology Radiation Oncology
DX: Z85.118 Personal history of other malignant neoplasm of bronchus and lung (principal); Z92.21 Personal history of antineoplastic chemotherapy; Z92.3 Personal history of irradiation
CPT/HCPCS: 99212

== ENCOUNTER 2018-10-22 16:19 | Emergency (ER) | payer MEDICARE, OTHER ==
[~2018-10-22 16:19] MED LIST changes: +RANI-366 PO; -RANI-54 PO; +TRAZ50TA34 PO; -TRAZ50TA52 PO
--- NOTE | 2018-10-22 16:25 | ER Report ---
History and Physical Time Seen By MD: 16:25 HPI/ROS CHIEF COMPLAINT: fell in the park HISTORY OF PRESENT ILLNESS: Pt was in the park and a basketball came was accidentally thrown at her. Pt went to bat it away and she lost her balance and fell. Pt landed on both hands to block her fall but did hit the right side of her face to the ground. Pt denies loc. pt does not have headache. No neck pain. no numbness. Pt did go to urgent care because of abrasions to her hands and bruising near her right eye. Urgent care sent her to the ED due to being on ASA and eliquis. Pt is not sure of her last tetnus shot. REVIEW OF SYSTEMS: Constitutional: No fever, no chills. Eyes: No discharge. ENT: No sore throat. Cardiovascular: No chest pain, no palpitations. Respiratory: No cough, no shortness of breath. Gastrointestinal: No abdominal pain, no vomiting. Genitourinary: No hematuria. Musculoskeletal: No back pain. Skin: No rashes, + abrasions to both palms, bruising to right eye. Neurological: No headache. Allergies: Coded Allergies: No Known Allergies (Verified Allergy, Mild, 07/17/16) Home Meds Active Scripts Apixaban (ELIQUIS) 5 Mg Tablet, 5 MG PO BID, #60 TAB Take 2 tablets twice a day for 7 days, then take one tablet twice daily. Prov:SCOTT NOLANASHLEY DO 12/26/17 Ferrous Sulfate (FERROUS SULFATE) 325 Mg Tablet, 325 MG PO DAILY for 30 Days, #30 MG 6 Refills Prov:SRIDEVI WYLIEP-BC, ONC 12/27/16 Folic Acid (FOLIC ACID) 1 Mg Tablet, 1 MG PO QDAY, #30 TAB 5 Refills Prov:SRIDEVI WYLIEP-BC, ONC 08/07/16 Aspirin (Children's Aspirin) 81 Mg Chew, 81 MG PO QDAY, #30 TAB.CHEW Prov:REILLY WEAVER DO 09/11/14 Reported Medications Biotin (BIOTIN) 300 Mcg Tablet, 200 MCG PO DAILY 12/26/17 Magnesium Oxide (MAGNESIUM) 250 Mg Tablet, 250 MG PO DAILY 12/26/17 Ubidecarenone (CO Q-10) 200 Mg Capsule, 200 MG PO DAILY, CAPSULE 12/26/17 Cyanocobalamin (Vitamin B-12) (B-12) 500 Mcg Tablet, 500 MCG PO DAILY 12/26/17 Alpha Lipoic Acid (ALPHA LIPOIC ACID) 200 Mg Tablet, 200 MG PO DAILY 12/26/17 Trazodone Hcl (TRAZODONE HCL) 100 Mg Tablet, 100 MG PO QHS, TAB 12/26/17 Nitroglycerin (NITROSTAT) 0.4 Mg Subl, 0.4 MG SL Q5MIN 12/25/17 Metformin Hcl (METFORMIN HCL) 1,000 Mg Tablet, 1 TAB PO BID, TAB 05/23/17 Multivitamin (MULTI VITAMIN DAILY) 1 Each Tablet, 1 EACH PO DAILY 11/16/16 Ascorbic Acid (VITAMIN C) 500 Mg Tablet, 500 MG PO DAILY, TAB 11/16/16 Methimazole (METHIMAZOLE) 5 Mg Tablet, 5 MG PO DAILY 09/04/16 Metoprolol Succinate (METOPROLOL SUCCINATE) 50 Mg Tab.er.24h, 100 MEQ PO QDAY, TAB 08/17/16 Lisinopril (LISINOPRIL) 5 Mg Tablet, 10 MG PO QDAY, TAB 08/17/16 Atorvastatin Calcium (LIPITOR) 40 Mg Tablet, 1 TAB PO HS, TAB 02/12/15 Past Medical/Surgical History Pmhx: htn, cad, DM2, PE, adeno CA lung, hyperthyroid Pshx: stent Reviewed Nurses Notes: Yes Old Medical Records Reviewed: Yes Hx Smoking: Yes Smoking Status: Former Smoker Exposure to Second Hand Smoke?: No Hx Substance Use Disorder: No Hx Alcohol Use: No Constitutional Vital Sign - Last 24 Hours 10/22/18 16:24 Temp 98.5 Pulse 82 Resp 20 B/P (MAP) 173/102 Pulse Ox 93 O2 Delivery Nasal Cannula Physical Exam General Appearance: The patient is alert, has no immediate need for airway protection and no signs of toxicity. Eyes: Pupils equal and round no pallor or injection, EOMI, + tenderness under right inferior orbit without signs of entrapment ENT: no pharyngeal erythema or exudates, Mucous membranes are moist, TM are nl b/l, neg hemotympanums b/l Respiratory: There are no retractions, lungs are clear to auscultation. Cardiovascular: Regular rate and rhythm. pulses are equal and symmetrical Gastrointestinal: Abdomen is soft and non tender, no masses, bowel sounds normal, no guarding, no rigidity or rebound Neurological: Cranial nerves II-XII grossly intact, no sensory or motor loss Skin: Warm and dry, no rashes, + abrasions to b/l palms, + 2cm skin tear on left tenar area with active bleeding, + 1cm laceration inner upper lip no thru and thru injury, teeth do not feel loose Musculoskeletal: Neck is supple non tender, no vertebral tenderness Extremities are nontender, nonswollen and have full range of motion, No pain with pronation or supination of upper extremities; normal gait DIFFERENTIAL DIAGNOSIS: After history and physical exam differential diagnosis was considered for hand contusions,abrasions, close head injury vs intracranial bleed, orbital contusion vs fx Medical Decision Making EKG/Imaging Imaging no acute fractures of face. no head bleed. see report. ED Course/Re-evaluation ED Course CT head and facial bones Spoke with patient about her inner lip laceration. Will not close due to not gapping and the risk of infection with closure is high. will heal on its own. 10/22/2018 5:00:52 pm PROCEDURE: LET placed on left skin tear for anesthesia prior to cleaning. Using dermabond tacked down the skin to act a a natural bandaid to the wound. Skin will turn into a scab. Decision to Disposition Date: October 22, 2018 Decision to Disposition Time: 17:51 Depart Departure Latest Vital Signs Vital Signs Date Time Temp Pulse Resp B/P (MAP) Pulse Ox O2 Delivery O2 Flow Rate FiO2 10/22/18 16:24 98.5 82 20 173/102 93 Nasal Cannula Impression: Primary Impression: Facial contusion Additional Impression: Skin tear of hand without complication Condition: Improved Disposition: HOME OR SELF-CARE Referrals: REILLY REVELES MD (PCP) 5 Days Patient Instructions: Contusion in Adults (ED), Skin Tear (ED) Additional Instructions: Your CT scan of your head did not show any bleeding in your brain. Your CT scan of your face did not show any fractures. You do have skin tears on your palms. The skin in those areas will dry up and fall off and new skin should grow underneath. Please return for any concerns that may develop. Problem Qualifiers Primary Impression: Facial contusion Encounter type: initial encounter Qualified Codes: S00.83XA - Contusion of other part of head, initial encounter Additional Impression: Skin tear of hand without complication Encounter type: initial encounter Laterality: unspecified laterality Qualified Codes: S61.419A - Laceration without foreign body of unspecified hand, initial encounter LADI GRUBER DO October 22, 2018 16:25
[2018-10-22] MEDS ORDERED: TETRACAIN/EPI/LIDO GEL 3ML SYR TP ONE (17:00)
--- NOTE | 2018-10-22 17:28 | RADIOLOGY IMAGING REPORT ---
FACILITY: [facility] [place] PATIENT NAME: Silva Brown : 1935 MR: [id number] V: [id number] EXAM DATE: ORDERING PHYSICIAN: LADI GRUBER TECHNOLOGIST: Location: [facility] Patient: Silva Brown : 1935 Visit/Account:[id number] Date of Sevice: 10/22/2018 Exam type: CT BRAIN NO CONTRAST, CT FACIAL BONES W/O CONTRAST CLINICAL INDICATION: Fall with trauma on blood thinners. COMPARISON: December 26, 2017 TECHNIQUE: Contiguous axial CT images of the brain and facial bones were obtained without IV contrast . Sagittal and coronal reformatted images were also performed. One of the following dose optimization techniques was utilized in the performance of this exam: Autom ated exposure control; adjustment of the mA and/or kV according to the patient's size; or use of an i terative reconstruction technique. Specific details can be referenced in the facility's radiology C T exam operational policy. RESULT: CT brain: BRAIN: Minimal prominence of the ventricles and sulci which is within normal limits for the patient's age. There are mild areas of low attenuation in the periventricular and subcortical white matter wh ich are nonspecific, but suggestive of chronic microvascular ischemic change. No focal area of heter ogeneous hypoattenuation within the left cerebellum, most compatible with encephalomalacia. Remainin g parenchyma is unremarkable. The brainstem and cerebellum appear normal. The basilar cisterns appea r normal. There is no mass, acute infarct, hemorrhage or shift of midline. Vascular atherosclerotic c alcifications are present. PARANASAL SINUSES & MASTOIDS: Well aerated. SKULL BASE & CRANIUM: Visualized osseous structures are intact. SOFT TISSUES: No soft tissue swelling or hematoma is appreciated. CT facial bones: Bones: No fractures or other acute osseous abnormality Soft tissues: Mild right cheek swelling/hematoma. Globes/orbits are unremarkable. Mild calcified pl aque within the carotid bulbs IMPRESSION: 1. No acute findings. 2. Mild right cheek swelling/hematoma. 3. 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 Report Dictated By: Bebo Porter MD at 10/22/2018 5:13 PM Report E-Signed By: Bebo Porter MD at 10/22/2018 5:22 PM WSN:[email or web address]
--- NOTE | 2018-10-22 17:29 | RADIOLOGY IMAGING REPORT ---
FACILITY: [facility] PATIENT NAME: Silva Brown : 1935 MR: [id number] V: [id number] EXAM DATE: ORDERING PHYSICIAN: LADI GRUBER TECHNOLOGIST: [place] [facility] [place] : 1935 Visit/Account:[id number] Date of Sevice: 10/22/2018 Exam type: CT BRAIN NO CONTRAST, CT FACIAL BONES W/O CONTRAST CLINICAL INDICATION: Fall with trauma on blood thinners. COMPARISON: December 26, 2017 TECHNIQUE: Contiguous axial CT images of the brain and facial bones were obtained without IV contrast . Sagittal and coronal reformatted images were also performed. One of the following dose optimization techniques was utilized in the performance of this exam: Autom ated exposure control; adjustment of the mA and/or kV according to the patient's size; or use of an i terative reconstruction technique. Specific details can be referenced in the facility's radiology C T exam operational policy. RESULT: CT brain: BRAIN: Minimal prominence of the ventricles and sulci which is within normal limits for the patient's age. There are mild areas of low attenuation in the periventricular and subcortical white matter wh ich are nonspecific, but suggestive of chronic microvascular ischemic change. No focal area of heter ogeneous hypoattenuation within the left cerebellum, most compatible with encephalomalacia. Remainin g parenchyma is unremarkable. The brainstem and cerebellum appear normal. The basilar cisterns appea r normal. There is no mass, acute infarct, hemorrhage or shift of midline. Vascular atherosclerotic c alcifications are present. PARANASAL SINUSES & MASTOIDS: Well aerated. SKULL BASE & CRANIUM: Visualized osseous structures are intact. SOFT TISSUES: No soft tissue swelling or hematoma is appreciated. CT facial bones: Bones: No fractures or other acute osseous abnormality Soft tissues: Mild right cheek swelling/hematoma. Globes/orbits are unremarkable. Mild calcified pl aque within the carotid bulbs IMPRESSION: 1. No acute findings. 2. Mild right cheek swelling/hematoma. 3. 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 Report Dictated By: Bebo Porter MD at 10/22/2018 5:13 PM Report E-Signed By: Bebo Porter MD at 10/22/2018 5:22 PM WSN:HARI
[2018-10-22] MEDS ORDERED: DIPHTH/TETANUS/ACEL. PERTUSSIS IM ONLY ONE (18:00)
[2018-10-22 18:04] VITALS: BP 155/77
== END 2018-10-22 18:13 | disposition home or self-care (01) ==
LOC: ER 16:29
DX: S00.83XA Contusion of other part of head, initial encounter (principal); S01.511A Laceration without foreign body of lip, initial encounter; S60.512A Abrasion of left hand, initial encounter; S60.511A Abrasion of right hand, initial encounter; W01.198A Fall on same level from slipping, tripping and stumbling with subsequent striking against other object, initial encounter
CPT/HCPCS: 70450; 70486; 90471; 90715; 99284

== ENCOUNTER → 2019-01-06 | Outpatient (CLI) | payer MEDICARE, OTHER ==
[~2019-01-06] MED LIST changes: +IOPAMIDOL 76% 100 ML INFUS BTL 100 ML ONE; +NS(*) 0.9% 50 ML BAG 50 ML ONE; -RANI-366 PO; +RANI-54 PO; -TRAZ50TA34 PO; +TRAZ50TA52 PO
--- NOTE | 2019-01-06 11:25 | RADIOLOGY IMAGING REPORT ---
FACILITY: PATIENT NAME: Silva Brown : 1935 MR: [id number] V: [id number] EXAM DATE: ORDERING PHYSICIAN: PHOENIX SHAIKH TECHNOLOGIST: Location: [facility] Patient: Silva Brown : 1935 Visit/Account:[id number] Date of Sevice: 01/06/2019 CT CTA CHEST W CON evaluate for pulmonary embolus HISTORY: Evaluate for pulmonary embolus. History of lung cancer TECHNIQUE: CTA chest with intravenous contrast attention to pulmonary arteries. Sagittal, coronal a nd slab 3D MIP coronal reconstructed images were also created for further evaluation and interpretati on. One of the following dose optimization techniques was utilized in the performance of this exam: Autom ated exposure control; adjustment of the mA and/or kV according to the patient's size; or use of an i terative reconstruction technique. Specific details can be referenced in the facility's radiology CT exam operational policy. CONTRAST: 75 mL Isovue-370. COMPARISON: CT dated April 17, 2018. FINDINGS: Heart/vessels: Satisfactory opacification of the pulmonary arteries without visualized pulmonary emb olus.Moderate to advanced calcifications within the coronary arteries. Mediastinum: Moderate atherosclerosis within the thoracic aorta. Multinodular thyroid goiter, gross ly unchanged. Tiny hiatal hernia. Lymph nodes: Multiple predominantly subcentimeter mediastinal and hilar lymph nodes which have incre ased since prior exam. Focal soft tissue within the AP window which is likely related to conglomerat e lymphadenopathy measuring 8 x 30 mm (image 41 of series 4), previously 4 x 15 mm. Lungs/pleura: Focal consolidation within the left lower lobe which is difficult to measure given the amorphous configuration however it appears grossly increased in size since prior exam. Additional n odular opacity/consolidation along the medial aspect of the left lower lobe which appears increased i n size. For example, a pleural-based nodularity on image 2:30 of series 10 measures 8 x 24 mm, previ ously 7 x 16 mm. Additional pleural-based nodularity medially within the inferior aspect of the left lower lobe measures approximately 7 x 44 mm (image 291 of series 10), previously 6 x 17 mm. Additio nal extensive sites of pleural-based nodularity noted throughout the left lung which are either new o r increased and concerning for metastasis Heterogeneous peripheral consolidation within the left upper lobe (image 157 of series 10), unchanged . Few subpleural nodules within the right lung which are unchanged and likely benign. There are 2 punc carrera nodules within the periphery of the right middle lobe measuring up to 1-2 mm (image 179 of serie s 10), not definitively identified on the prior imaging Small left pleural effusion. No right effusion. Visualized upper abdomen: Stable left adrenal adenoma. Calcifications within the pancreas, likely s equela of chronic pancreatitis. Otherwise negative. Bones/soft tissues: No acute or concerning osseous abnormality. IMPRESSION: 1. No acute findings. Negative for pulmonary embolus. 2. Amorphous consolidation within the left lower lobe appears grossly increased in size since prior exam. Findings are concerning for malignancy. 3. Extensive pleural-based nodularity within the left lung which is either new or progressed since t he prior CT, highly concerning for metastasis. 4. Numerous borderline prominent mediastinal and hilar lymph nodes which could be reactive however c oncerning for metastasis. 5. Nonspecific right-sided pulmonary nodules, most of which are unchanged. There are least 2 nodule s which are new with metastasis is not excluded. 6. Additional incidental/chronic findings, as above. Report Dictated By: Bebo Porter MD at 01/06/2019 11:02 AM Report E-Signed By: Bebo Porter MD at 01/06/2019 11:18 AM WSN:[email or web address]
== END ==
LOC: CT 01:07
PROVIDERS: ATTEND Nurse Practitioner
DX: I26.99 Other pulmonary embolism without acute cor pulmonale (principal); J98.4 Other disorders of lung
CPT/HCPCS: 71275; J7050; Q9967